=== PATIENT | female | born 1970 | race Caucasian/White ===

== ENCOUNTER 2017-09-09 00:23 | Observation (INO) | payer OTHER ==
[2017-09-09 01:52] LABS: Absolute Lymphocytes (CBC) 2.7 K/uL (0.7-4.9); Absolute Monocytes 0.8 K/uL (0.1-1.3); Absolute Neutrophil 8.4 K/uL (1.8-8.0); Basophils % 0.7 % (0-1.3); Eosinophils % 1.6 % (0-4.4); Hematocrit 40.4 % (36.0-45.0); Lymphocytes % 21.8 % (15.3-44.8); MCH 28.9 pg (27.0-35.0); MCV 87.3 fL (80-100); MPV 9.4 fL (7.6-11.3); Monocytes % 6.6 % (3.3-12.3); RBC Red Blood Cell Count 4.62 M/uL (3.86-4.86)
[2017-09-09] MEDS ORDERED: NITROGLYCERIN 0.4 MG/TAB SL ONE (01:53)
[2017-09-09] MEDS ORDERED: ONDANSETRON 4 MG/2 ML VIAL ONE (01:54)
[2017-09-09] MEDS ORDERED: MEPERIDINE HCL 50 MG/ML AMP ONE (01:54)
[2017-09-09] MEDS ORDERED: ASPIRIN 81 MG CHEWABLE TABLET ONE (01:54)
[2017-09-09 01:55] LABS: Protime INR 0.93
[2017-09-09 05:01] LABS: Bilirubin Direct 0.1 mg/dL (0-0.2); Bilirubin Total 0.4 mg/dL (0.3-1.2); Magnesium 1.8 mg/dL (1.8-2.5); Potassium 3.1 mEq/L (3.6-5.0); Protein, Total 7.2 g/dL (6.0-8.3)
--- NOTE | 2017-09-09 05:10 | EKG ---
Test Date: 2017-09-09 Test Time: 01:01:37 Systems Consultant: ZANE MEASUREMENT RESULTS: Intervals: Rate: 70 KS: 140 QRSD: 70 QT: 430 QTc: 464 [place]: P: 45 KS: 140 QRS: 70 T: 63 INTERPRETIVE STATEMENTS: Normal sinus rhythm Low voltage QRS Borderline ECG Compared to ECG 04/14/2016 06:43:27 Low QRS voltage now present Sinus bradycardia no longer present Electronically Signed On 09-09-17 05:10:15 CDT by Robinson Crenshaw
--- NOTE | 2017-09-09 05:10 | ER ---
Nurse's Notes [facility] Name: Phyllis Escalera Age: 47 yrs Sex: Female : 1970 Arrival Date: 09/09/2017 Time: 00:33 Bed 7 Private MD: Diagnosis: acute chest pain;acute shortness of breath Presentation: 09/09 00:47 Presenting complaint: Patient states: "I had chest pain that started few hours ago and ao is getting worst." Patient describes pain as stabbing in 9/10 pain scale. Patient had been vomiting. Transition of care: patient was not received from another setting of care. Onset of symptoms was September 08, 2017 at 21:00. Care prior to arrival: None. 00:47 Method Of Arrival: Wheelchair ao 00:47 Acuity: SILVERIO 3 ao Triage Assessment: 00:55 General: Appears in no apparent distress. Behavior is agitated, anxious. Pain: ao Complains of pain in chest. Cardiovascular: Capillary refill < 3 seconds Patient's skin is warm and dry. 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 - Social history:: Smoking status: Patient uses tobacco products, smokes one pack cigarettes per day. Patient/guardian denies using alcohol, street drugs. - Family history:: not pertinent. - Hospitalizations: : No recent hospitalization is reported. Screenin:14 Abuse screen: Denies threats or abuse. Denies injuries from another. Nutritional bs1 screening: No deficits noted. Tuberculosis screening: No symptoms or risk factors identified. Fall Risk None identified. Assessment: 01:11 General: Appears uncomfortable, Behavior is anxious, crying. Pain: Complains of pain in bs1 mid chest Pain radiates to left shoulder down left arm Pain currently is 10 out of 10 on a pain scale. Quality of pain is described as pressure, stabbing, Pain began 30 min ago. Is continuous. Neuro: Level of Consciousness is awake, alert, obeys commands, Oriented to person, place, time, situation, Appropriate for age Puller Over are equal bilaterally Moves all extremities. Gait is steady. Cardiovascular: Reports chest pain, lightheadedness, shortness of breath, vomiting, Denies palpitations, Heart tones S1 S2 present Capillary refill < 3 seconds Patient's skin is warm and dry. Rhythm is regular. Respiratory: Reports shortness of breath at rest on exertion Airway is patent Trachea midline Respiratory effort is even, unlabored, Respiratory pattern is regular, symmetrical, Breath sounds are clear bilaterally. GI: Abdomen is round Bowel sounds present X 4 quads. Abd is non tender X 4 quads Reports nausea, vomiting. : No deficits noted. No signs and/or symptoms were reported regarding the genitourinary system. EENT: No deficits noted. No signs and/or symptoms were reported regarding the EENT system. Derm: Skin is intact, Skin is pink, warm \\T\\ dry. 01:15 General: 2l NC applied. bs1 01:51 Reassessment: No changes from previously documented assessment. Patient and/or family bs1 updated on plan of care and expected duration. Pain level reassessed. Patient is alert, oriented x 3, equal unlabored respirations, skin warm/dry/pink. 01:58 General: See paper charting.. bs1 02:58 Reassessment: No changes from previously documented assessment. Patient and/or family bs1 updated on plan of care and expected duration. Pain level reassessed. Patient is alert, oriented x 3, equal unlabored respirations, skin warm/dry/pink. 03:58 Reassessment: Patient appears in no apparent distress at this time. Patient and/or bs1 family updated on plan of care and expected duration. Pain level reassessed. Patient is alert, oriented x 3, equal unlabored respirations, skin warm/dry/pink. Patient states feeling better. 04:58 Reassessment: Patient appears in no apparent distress at this time. No changes from bs1 previously documented assessment. Patient and/or family updated on plan of care and expected duration. Pain level reassessed. Patient is alert, oriented x 3, equal unlabored respirations, skin warm/dry/pink. 05:58 Reassessment: Patient appears in no apparent distress at this time. No changes from bs1 previously documented assessment. Patient and/or family updated on plan of care and expected duration. Pain level reassessed. Patient is alert, oriented x 3, equal unlabored respirations, skin warm/dry/pink. 06:26 Reassessment: Patient appears in no apparent distress at this time. Patient is alert, bs1 oriented x 3, equal unlabored respirations, skin warm/dry/pink. Denies chest pain at this time. Vital Signs: 00:52 BP 127 / 99; Pulse 75; Resp 22; Temp 98.1; Pulse Ox 100% ; Weight 90.72 kg; Height 5 ao ft. 4 in. (162.56 cm); Pain 9/10; 01:49 BP 123 / 90; Pulse 64; Resp 18; Pulse Ox 100% on 2 lpm NC; Pain 9/10; bs1 02:49 BP 138 / 95; Pulse 60; Resp 14 S; Pulse Ox 100% on 2 lpm NC; Pain 0/10; bs1 03:49 BP 132 / 85; Pulse 70; Resp 15 S; Pulse Ox 100% on 2 lpm NC; Pain 0/10; bs1 04:49 BP 114 / 83; Pulse 56; Resp 14; Pulse Ox 100% on 2 lpm NC; Pain 0/10; bs1 06:01 BP 121 / 85; Pulse 59; Resp 15; Pulse Ox 97% on 2 lpm NC; mt 06:25 BP 114 / 82; Pulse 70; Resp 16; Pulse Ox 100% on 2 lpm NC; Pain 0/10; bs1 07:30 BP 116 / 88; Pulse 57; Resp 18; Pulse Ox 99% ; sv 00:52 Body Mass Index 34.33 (90.72 kg, 162.56 cm) ao ED Course: 00:33 Patient arrived in ED. al2 00:48 Triage completed. ao 00:48 Arm band placed on right wrist. Patient placed on a stretcher, on pulse oximetry, ao Patient notified of wait time. 01:08 Inserted saline lock: 20 gauge in left antecubital area, using aseptic technique. bs1 Patient maintains SpO2 saturation greater than 95% on room air. 01:08 Initial lab(s) drawn, by me, sent to lab. bs1 01:11 Linh Guajardo, ANNEL is Primary Nurse. bs1 01:14 Patient has correct armband on for positive identification. Bed in low position. Call bs1 light in reach. Side rails up X 1. surveillance monitor on. Pulse ox on. NIBP on. 01:17 Abhinav Gómez MD is Attending Physician. wa 01:38 X-ray completed. Portable x-ray completed in exam room. Patient tolerated procedure jw2 well. 01:43 Parris Whipple MD is Hospitalizing Provider. wa 01:57 No provider procedures requiring assistance completed. bs1 07:02 Report given to ANNEL Cho. bs1 07:08 Patient admitted, IV remains in place. intact. bs1 Administered Medications: 01:47 Drug: Zofran 4 mg Route: IVP; Site: left antecubital; bs1 01:48 Follow up: Response: No adverse reaction bs1 01:47 Drug: Demerol 50 mg Route: IVP; Site: left antecubital; bs1 01:48 Follow up: Response: No adverse reaction bs1 01:48 Drug: Nitroglycerin 0.4 mg Route: Sublingual; bs1 01:49 Follow up: Response: No adverse reaction bs1 01:48 Drug: Aspirin 324 mg Route: PO; bs1 01:49 Follow up: Response: No adverse reaction bs1 Outcome: 01:44 Decision to Hospitalize by Provider. wa 07:08 Condition: stable bs1 07:08 Instructed on the need for admit. 07:49 Patient left the ED. Signatures: Tammie Good RN RN sv Smirch, Shelby, RN RN Darryl Nielson RN RN ao Wailes, Jenni 2 Mitzi Corona nj Abhinav Gómez MD MD hi Linh Guajardo RN RN bs1 Sarah Guaman
--- NOTE | 2017-09-09 05:10 | EDPHYS ---
Physician Documentation [facility] Name: Phyllis Escalera Age: 47 yrs Sex: Female : 1970 Arrival Date: 09/09/2017 Time: 00:33 Bed 7 Private MD: ED Physician Abhinav Gómez HPI: 09/09 05:11 This 47 yrs old Female presents to ER via Wheelchair with complaints of Chest wa Pain. 05:11 The patient or guardian reports chest pain that is located primarily in the substernal wa area. Onset: just prior to arrival. The pain does not radiate. The pain radiates to the left arm. Associated signs and symptoms: Pertinent positives: shortness of breath. The chest pain is described as a heaviness, sharp. Duration: The patient or guardian reports a single episode, that is still ongoing, and worsening. Modifying factors: The symptoms are alleviated by nothing. the symptoms are aggravated by nothing. Severity of pain: At its worst the pain was severe just prior to arrival. The patient has experienced a previous episode, approximately 2 months ago. The patient has not recently seen a physician. 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 - Social history:: Smoking status: Patient uses tobacco products, smokes one pack cigarettes per day. Patient/guardian denies using alcohol, street drugs. - Family history:: not pertinent. - Hospitalizations: : No recent hospitalization is reported. ROS: 05:12 Constitutional: Negative for fever, chills, and weight loss, Eyes: Negative for injury, wa pain, redness, and discharge, ENT: Negative for injury, pain, and discharge, Neck: Negative for injury, pain, and swelling, Abdomen/GI: Negative for abdominal pain, nausea, vomiting, diarrhea, and constipation, Back: Negative for injury and pain, : Negative for injury, bleeding, discharge, and swelling, MS/Extremity: Negative for injury and deformity, Skin: Negative for injury, rash, and discoloration, Neuro: Negative for headache, weakness, numbness, tingling, and seizure, Psych: Negative for depression, anxiety, suicide ideation, homicidal ideation, and hallucinations. 05:12 Cardiovascular: Positive for chest pain, Negative for edema, orthopnea, palpitations. 05:12 Respiratory: Positive for shortness of breath, at rest. Negative for cough, wheezing. 05:12 All other systems are negative. Exam: 05:13 Head/Face: Normocephalic, atraumatic. Eyes: Pupils equal round and reactive to light, wa extra-ocular motions intact. Lids and lashes normal. Conjunctiva and sclera are non-icteric and not injected. Cornea within normal limits. Periorbital areas with no swelling, redness, or edema. ENT: Nares patent. No nasal discharge, no septal abnormalities noted. Tympanic membranes are normal and external auditory canals are clear. Oropharynx with no redness, swelling, or masses, exudates, or evidence of obstruction, uvula midline. Mucous membranes moist. Neck: Trachea midline, no thyromegaly or masses palpated, and no cervical lymphadenopathy. Supple, full range of motion without nuchal rigidity, or vertebral point tenderness. No Meningismus. Abdomen/GI: Soft, non-tender, with normal bowel sounds. No distension or tympany. No guarding or rebound. No evidence of tenderness throughout. Back: No spinal tenderness. No costovertebral tenderness. Full range of motion. Skin: Warm, dry with normal turgor. Normal color with no rashes, no lesions, and no evidence of cellulitis. MS/ Extremity: Pulses equal, no cyanosis. Neurovascular intact. Full, normal range of motion. Neuro: Awake and alert, GCS 15, oriented to person, place, time, and situation. Cranial nerves II-XII grossly intact. Motor strength 5/5 in all extremities. Sensory grossly intact. Cerebellar exam normal. Normal gait. Psych: Awake, alert, with orientation to person, place and time. Behavior, mood, and affect are within normal limits. 05:13 Constitutional: The patient appears alert, in obvious distress, severely distressed, clutching chest 05:13 Chest/axilla: Inspection: normal, Palpation: tenderness, that is moderate, of the mid-sternal area. 05:13 Cardiovascular: Rate: normal, Rhythm: regular, Pulses: no pulse deficits are appreciated, Heart sounds: normal, Edema: is not appreciated, JVD: is not appreciated. 05:13 Respiratory: the patient does not display signs of respiratory distress, Respirations: normal, Breath sounds: are clear throughout, Respiratory rate: nml Vital Signs: 00:52 BP 127 / 99; Pulse 75; Resp 22; Temp 98.1; Pulse Ox 100% ; Weight 90.72 kg; Height 5 ao ft. 4 in. (162.56 cm); Pain 9/10; 01:49 BP 123 / 90; Pulse 64; Resp 18; Pulse Ox 100% on 2 lpm NC; Pain 9/10; bs1 02:49 BP 138 / 95; Pulse 60; Resp 14 S; Pulse Ox 100% on 2 lpm NC; Pain 0/10; bs1 03:49 BP 132 / 85; Pulse 70; Resp 15 S; Pulse Ox 100% on 2 lpm NC; Pain 0/10; bs1 04:49 BP 114 / 83; Pulse 56; Resp 14; Pulse Ox 100% on 2 lpm NC; Pain 0/10; bs1 06:01 BP 121 / 85; Pulse 59; Resp 15; Pulse Ox 97% on 2 lpm NC; mt 06:25 BP 114 / 82; Pulse 70; Resp 16; Pulse Ox 100% on 2 lpm NC; Pain 0/10; bs1 07:30 BP 116 / 88; Pulse 57; Resp 18; Pulse Ox 99% ; sv 00:52 Body Mass Index 34.33 (90.72 kg, 162.56 cm) ao MDM: 01:17 Patient medically screened. wa 05:14 Differential diagnosis: acute myocardial infarction, acute pericarditis, coronary wa artery disease chest wall pain, congestive heart failure esophagitis, pancreatitis, pneumonia, pneumothorax, pulmonary embolus, stable angina, thoracic aortic disection, unstable angina. Data reviewed: vital signs, nurses notes, lab test result(s), EKG, radiologic studies. 05:15 Test interpretation: by ED physician or midlevel provider: EKG: HR 70. low voltage. no wa ST-T changes worrisome for ischemia. 05:18 Test interpretation: by ED physician or midlevel provider: labs noted wnl. CT mn chest/abd/pelvis: no acute process. CXR nml.. 05:18 Response to treatment: the patient's symptoms have markedly improved after treatment. mn Physician consultation: Parris Whipple MD. Admission orders: after a detailed discussion of the patient's condition and case, the admit orders are written by ne. 09/09 01:25 Order name: Basic Metabolic Panel mn 09/09 01:25 Order name: BNP mn 09/09 01:25 Order name: CBC with Diff mn 09/09 01:25 Order name: CPK mn 09/09 01:25 Order name: LFT's mn 09/09 01:25 Order name: Magnesium mn 09/09 01:25 Order name: PT-INR mn 09/09 01:25 Order name: Troponin (emerg Dept Use Only) mn 09/09 05:11 Order name: Basic Metabolic Panel [facility] 09/09 05:11 Order name: Liver (Hepatic) Function [facility] 09/09 05:11 Order name: Creatine Phosphokinase [facility] 09/09 05:11 Order name: Magnesium [facility] 09/09 05:11 Order name: BNP B-Type Natriuretic Peptide [facility] 09/09 05:11 Order name: CBC with Automated Diff [facility] 09/09 01:25 Order name: XRAY Chest (1 view) mn 09/09 01:25 Order name: EKG; Complete Time: mn 09/09 01:25 Order name: Cardiac monitoring; Complete Time: mn 09/09 01:25 Order name: EKG - Nurse/Tech; Complete Time: mn 09/09 01:25 Order name: IV Saline Lock; Complete Time: mn 09/09 01:25 Order name: Labs collected and sent; Complete Time: mn 09/09 01:25 Order name: O2 Per Protocol; Complete Time: mn 09/09 01:25 Order name: O2 Sat Monitoring; Complete Time: mn 09/09 01:27 Order name: CT Chest Abdomen W/ Contrast mn 09/09 05:11 Order name: Protime (+INR) [facility] 09/09 05:11 Order name: Troponin (Emerg Dept Use Only) [facility] 09/09 06:54 Order name: Urine Dipstick--Ancillary (enter results) em1 09/09 01:25 Order name: Urine Dipstick-Ancillary (obtain specimen); Complete Time: 06:52 mn Administered Medications: 01:47 Drug: Zofran 4 mg Route: IVP; Site: left antecubital; bs1 01:48 Follow up: Response: No adverse reaction bs1 01:47 Drug: Demerol 50 mg Route: IVP; Site: left antecubital; bs1 01:48 Follow up: Response: No adverse reaction bs1 01:48 Drug: Nitroglycerin 0.4 mg Route: Sublingual; bs1 01:49 Follow up: Response: No adverse reaction bs1 01:48 Drug: Aspirin 324 mg Route: PO; bs1 01:49 Follow up: Response: No adverse reaction bs1 Disposition: 09/09/17 01:44 Hospitalization ordered by Parris Whipple for Observation. Preliminary diagnosis are acute chest pain, acute shortness of breath. - Bed requested for Telemetry/MedSurg (observation). - Status is Observation. ss - Condition is Stable. - Problem is new. - Symptoms have improved. UTI on Admission? No Signatures: Dispatcher [employer] Xochitl Giron RN RN kl Chretien, Felicia, RN RN fc Smirch, Shelby, RN RN ss Ortiz, Alex, RN RN ao Appiah, William, MD MD wa Salazar, Brittany, RN RN bs1
[2017-09-09 05:43] VITALS: BMI 34.3
[2017-09-09] MEDS ORDERED: ACETAMINOPHEN 500 MG TAB PO PRN (07:07)
[2017-09-09 08:09] LABS: Urine Blood 1+ (NEG); Urine Glucose NEGATIVE (NEG); Urine Protein NEGATIVE (NEG)
--- NOTE | 2017-09-09 08:40 | RAD REPORT ---
EXAM DESCRIPTION: CT - Angio Aorta For Dissection - 09/09/2017 6:33 am CLINICAL HISTORY: Stabbing chest pain radiating to the back, vomiting, hypertension, prior hysterec santiago A preliminary written report was provided at the time of the study, and the report was reviewed prio r to final dictation. COMPARISON: Chest exam same date TECHNIQUE: Dynamically enhanced 3 mm thick images of the chest, abdomen, and upper pelvis were obtai chirag during administration of approximately 150mL Isovue 370 IV contrast. Sagittal and coronal reconst ruction images were generated and reviewed. Exam utilizes a protocol to evaluate entire course of the aorta. All CT scans are performed using dose optimization technique as appropriate and may include automated exposure control or mA/KV adjustment according to patient size. FINDINGS: Aorta is normal in diameter with no dissection or other acute aortic findings. Reconstruct ion images show no significant findings. Pulmonary arteries are normal as well. No cardiomegaly, pericardial thickening or pericardial effusio n. No mass or infiltrate in the lung parenchyma. No pleural thickening, pleural effusion or pneumothorax . No abnormal mediastinal or hilar mass or lymphadenopathy seen. No chest wall mass or abnormal axillar y lymphadenopathy. Celiac, SMA and renal arteries show no suspicious findings. Solid abdominal viscera and bowel show no significant findings. No mass or abnormal lymphadenopathy. No free air, free fluid or inflammatory stranding. No urinary bladder abnormality. Uterus and right ovary show no suspicious findings. Left ovary contains a 3 centimeter cyst with no suspicious characteristics. IMPRESSION: Negative CT scan of the aorta. No other significant findings on chest, abdomen and upper pelvis examination.
--- NOTE | 2017-09-09 08:43 | RAD REPORT ---
EXAM DESCRIPTION: RAD - Chest Single View - 09/09/2017 1:40 am CLINICAL HISTORY: Chest pain progressing over time COMPARISON: March 2016 TECHNIQUE: AP portable chest image was obtained 0136 hours . FINDINGS: Lungs are clear. Heart and vasculature are normal. No measurable pleural effusion and no p neumothorax. No gross bony abnormality seen. No acute aortic findings suspected. IMPRESSION: No acute cardiopulmonary process. No significant change from comparison.
[2017-09-09] MEDS: ENOXAPARIN 40 MG/0.4 ML SQ SCH (09:36)
[2017-09-09] MEDS: hydroCHLOROthiazide 12.5 MG CAP PO SCH (09:36)
[2017-09-09] MEDS: ASPIRIN 81 MG CHEWABLE TABLET PO SCH (09:36)
[2017-09-09] MEDS: PANTOPRAZOLE 40MG TABLET PO SCH (09:37)
[2017-09-09] MEDS: VALSARTAN 160 MG TAB PO SCH (09:37)
[2017-09-09] MEDS ORDERED: PANTOPRAZOLE 40MG TABLET PO SCH (10:00)
[2017-09-09] MEDS ORDERED: MAGNESIUM SULFATE 1 gm IVPB 1 GM/100 ML BAG IV ONE (11:00)
[2017-09-09] MEDS ORDERED: POTASSIUM CL SA 10 MEQ TAB PO ONE (11:00)
[2017-09-09] MEDS ORDERED: NA CHLORIDE 0.9% 250 ML ONE (11:42)
--- NOTE | 2017-09-09 14:01 | CON ---
History Of Present Illness: Ms. Escalera had atypical chest pain, came to the ER. Since being here, cardiac enzymes are normal and her EKG is normal. Ms. Escalera had chest pain in March 2016. We did a cardiac catheterization. Her coronary arteries are completely normal. Her echocardiogram was normal. Since then, she continues to smoke. She has good control of her blood pressure. She does n ot have diabetes. Allergies: SHE IS ALLERGIC TO DILTIAZEM. NO OTHER ALLERGIES. Physical Examination: General: She is feet 4 inches, 200 pounds. HEENT: Normal. Lungs: Clear. Cardiac Exam: Normal. Abdomen: Soft. Extremities: Normal. Diagnostic Data: EKG, normal. Cardiac enzymes normal. Impression: This is not an acute coronary syndrome. We will do a stress test tomorrow. If that is normal, she could be discharged. She should probably have studies to see if she has gallstones. I a m quite suspicious that what she had yesterday was actually a gallbladder attack. ROSALIO/RADHA Voice ID: [id number] Report ID: [id number]
--- NOTE | 2017-09-09 15:01 | P.HP ---
Certification for Inpatient Patient admitted to: Observation With expected LOS: <2 Midnights Patient will require the following post-hospital care: None Practitioner: I am a practitioner with admitting privileges, knowledge of patient current condition, hospital course, and medical plan of care. Services: Services provided to patient in accordance with Admission requirements found in Title 42 Section 412.3 of the Code of Federal Regulations Patient History Date of Service: 09/09/17 Primary Care Provider: NONE Reason for admission: Chest Pain History of Present Illness: This is a 47-year-old female with significant past medical history of hypo pressure presented to the ED complaining of having some chest pain that started about this morning. Patient stated that she had heaviness in her chest and then noticed that the pain was going down her chest under her breast area. Patient also noted that she started having some numbness and tingling on the left-hand side which was going up to her neck and she started having nausea. Patient stated that she had initially fever and chills and thus she decided to come to the ER to get a further checked out. Patient has not had any symptoms like this has happened to her in the past and this is the 1st time she has had chest pain. Allergies Calcium Channel Blocking Agent Dilt Allergy (Verified 04/14/16 04:54) Anaphylaxis CALCIUM CHANNEL BLOCKING Allergy (Uncoded 09/09/17 07:52) Unknown Home Medications: Esomeprazole Magnesium 40 mg PO DAILY 09/09/17 Hydrochlorothiazide [Hydrochlorothiazide*] 12.5 mg PO DAILY 09/09/17 Olmesartan Medoxomil 40 mg PO DAILY 09/09/17 - Past Medical/Surgical History Has patient received pneumonia vaccine in the past: No Diabetic: No -: HTN -: tubal ligation -: - Family History Mother -: Hypertension - Social History Smoking Status: Current every day smoker Alcohol use: Yes CD- Drugs: No Caffeine use: Yes Place of Residence: Home Review of Systems General: As per HPI Physical Examination - Vital Signs Temperature: 98.6 F Blood Pressure: 98/54 Pulse: 64 Respirations: 16 Pulse Ox (%): 95 - Physical Exam General: Alert, In no apparent distress, Oriented x3 HEENT: Atraumatic, PERRLA, Mucous membr. moist/pink, EOMI, Sclerae nonicteric Neck: Supple, 2+ carotid pulse no bruit, No LAD, Without JVD or thyroid abnormality Respiratory: Clear to auscultation bilaterally, Normal air movement Cardiovascular: Regular rate/rhythm, Normal S1 S2 Gastrointestinal: Normal bowel sounds, No tenderness Musculoskeletal: No tenderness Integumentary: No rashes Neurological: Normal gait, Normal speech, Normal strength at 5/5 x4 extr, Normal tone, Normal affect Lymphatics: No axilla or inguinal lymphadenopathy - Studies Laboratory Data (last 24 hrs) 09/09/17 00:30: PT 11.0, INR 0.93 09/09/17 00:30: WBC 12.2 H, Hgb 13.4, Hct 40.4, Plt Count 280 09/09/17 00:30: B-Natriuretic Peptide 19 09/09/17 00:30: Sodium 136, Potassium 3.1 L, BUN 9, Creatinine 0.99, Glucose 108 , Magnesium 1.8, Total Bilirubin 0.4, AST 20, ALT 27, Alkaline Phosphatase 82 Assessment and Plan - Problems (Diagnosis) (1) Chest pain Onset Date: 04/14/16 Current Visit: No Status: Acute Plan: Atypical Chest Pain with Negative troponin and EKG -Cardiology consulted -Stress in AM -ECHO pending -ACS guidelines. Qualifiers: Chest pain type: precordial pain Qualified Code(s): R07.2 - Precordial pain (2) HTN (hypertension) Current Visit: Yes Status: Chronic Qualifiers: Hypertension type: essential hypertension Qualified Code(s): I10 - Essential (primary) hypertension Discharge Plan: Home Plan to discharge in: 24 Hours - Advance Directives Does patient have a Living Will: No Does patient have a Durable POA for Healthcare: No - Code Status/Comfort Care Code Status Assessed: Yes Critical Care: No
--- NOTE | 2017-09-09 20:44 | RAD REPORT ---
EXAM DESCRIPTION: US - Abdomen Exam Complete - 09/09/2017 8:33 pm CLINICAL HISTORY: Abdominal pain, cholecystitis type symptoms COMPARISON: CT study September 09 FINDINGS: Gallbladder is partially contracted. Wall thickness is accentuated. No pericholecystic flu id seen. Gallbladder wall thickening may be due to chronic gallbladder disease, an acute wall thicken ing or artifact from incomplete distention. A 4 millimeter gallstone is identified it here into the w all. There are additional nonshadowing echogenic foci smaller in size likely representing polyps. No measurable quantity of sludge. Common bile duct is normal with no common duct stone identified. Liver shows a coarsened, increased echogenicity typical for fatty infiltration. No focal liver lesions see n. No splenic abnormality. The pancreas is too obscured for assessment. No pancreatic abnormality se en on the same day CT study. No hydronephrosis or suspicious mass in either kidney. Aorta is normal is size. No ascites or bulky lymphadenopathy. IMPRESSION: Single small gallstone is identified a tear to the wall. Additional small echogenic foci are believed to be polyps. Gallbladder wall is not fully distended. This accentuates wall thickness. This pattern can be seen in a nonfasting patient as well as with acute and chronic cholecystitis. There is no pericholecystic fl uid. No biliary tree dilatation. Fatty infiltration of the liver.
[2017-09-09] MEDS ORDERED: ATORVASTATIN 40 MG TAB PO SCH (21:00)
[2017-09-10 00:18] VITALS: O2SAT 98
[2017-09-10 05:59] LABS: Potassium 3.3 mEq/L (3.6-5.0)
[2017-09-10] MEDS: KCL 20 MEQ/100 mL IVPB 20 MEQ/100 ML BAG IV SCH ×2 (07:02→09:00)
[2017-09-10] MEDS ORDERED: NA CHLORIDE 0.9% 250 ML ONE (07:13)
[2017-09-10] MEDS ORDERED: HOME MED 1 EA UNK (Olmesartan Medoxomil [Olmesartan Medoxomil] 40 MG) PO SCH (09:00)
[2017-09-10] MEDS ORDERED: HOME MED 1 EA UNK (Esomeprazole Magnesium [Esomeprazole Magnesium] 40 MG) PO SCH (09:00)
[2017-09-10] MEDS: PANTOPRAZOLE 40MG TABLET PO SCH (12:49)
[2017-09-10] MEDS: ASPIRIN 81 MG CHEWABLE TABLET PO SCH (12:49)
[2017-09-10] MEDS: VALSARTAN 160 MG TAB PO SCH (12:51)
[2017-09-10] MEDS: hydroCHLOROthiazide 12.5 MG CAP PO SCH (12:51)
[2017-09-10] MEDS: ENOXAPARIN 40 MG/0.4 ML SQ SCH (12:53)
--- NOTE | 2017-09-10 16:59 | TREADMILL ---
70% H.R.: 123 85% H.R.: 149 90% H.R.: 158 100% H.R.: 175 DX: CHEST PAIN Date of Study: 09/10/2017 Ht: 5' 4 " Wt: 200 lb 0 oz Consulting Physician: VALERI MEDICATIONS: TYLENOL, ASPIRIN, LOVENOX, LIPITOR, ZOFRAN, DEMEROL, NITROSTAT HISTORY: 47 YEAR OLD FEMALE WITH COMPIANTS OF CHEST PAIN. HISTORY OF HYPERTENSION, GERD AND SMOKES HALF A PACK OF CIGARETTES PER DAY. PHYSICIAL EXAMINATION: RESTING B.P.: 130/94 RESTING H.R.: 78 RESTING EKG: NORMAL PROTOCOL: JOSSEYLN ROUTINE EXERCISE TIME: 7:05 MAXIMUM HEART RATE: 162 % OF PREDICTED B.P. AT PEAK STRESS: 144/90 H.R. AT 1 MINUTE POST EXERCISE: 148 IMPRESSION: ROUTINE JOSSELYN STOPPED DUE TO FATIGUE AND TARGET HEART RATE REACHED. NO CHEST PAIN. NO VENTRICULAR TACHYCARDIA. NO SUPRAVENTRICULAR TACHYCARDIA. NO ISCHEMIA WITH STESS. NORMAL STRESS TEST.
[2017-09-10 17:23] VITALS: BP 117/66; TEMP 97.7
--- NOTE | 2017-09-11 02:39 | DS ---
Date of Discharge: 09/10/2017 Consultants: Robinson Crenshaw M.D. with Cardiology. Procedures: On 09/10/2017, stress test. Admitting Diagnoses: 1.Chest pain. 2.Essential hypertension. 3.Obesity, BMI of 34.3. Discharge Diagnoses: 1.Chest pain, acute coronary syndrome ruled out. 2.Essential hypertension, stable. 3.Obesity, BMI of 34.3. Hospital Course: The patient is a 47-year-old female with past medical history of hypertension, who came in with chest pain. The patient was started on chest pain guidelines and remote cardiac telemet ry. Cardiac enzymes were repeated which were negative. The patient did have some mild hypokalemia, which was corrected. The patient otherwise did well. Her vital signs remained stable. Her chest pa in resolved. She was seen by Cardiology who recommended stress test. Stress test was completed. Th e patient otherwise did well. She was then cleared for discharge by consultants. The patient was di scharged home in a stable condition. Activity: As tolerated. Medications: As per medication reconciliation list. Followup: Follow up with conditioning room worker, Dr. Crenshaw in 2-4 weeks. Return to ER for worsening conditio n. Diet: Heart healthy. Physical Examination: General: Awake, alert, oriented, in no acute distress. CV: S1, S2. No murmurs. Respiratory: Clear to auscultation bilaterally. No wheezing. Abdomen: Soft, nontender, nondistended. Positive bowel sounds. Extremities: No clubbing, cyanosis, or edema. Neurologic: Nonfocal. SA/MODL Voice ID: [id number] Report ID: [id number]
== END 2017-09-10 18:04 | disposition home or self-care (01) ==
LOC: ER 00:23 → 2ND 01:44
PROVIDERS: ADMIT Internal Medicine; ATTEND Family Medicine
DX: R07.9 Chest pain, unspecified (principal); I10 Essential (primary) hypertension; E66.9 Obesity, unspecified; Z68.34 Body mass index [BMI] 34.0-34.9, adult; E87.6 Hypokalemia; F17.210 Nicotine dependence, cigarettes, uncomplicated
CPT/HCPCS: 36415; 71045; 71275; 74175; 76700; 80048; 80076; 81003; 82550; 83735; 83880; 84100; 84132; 84484; 85025; 85610; 93005; 93017; 96374; 96375; 99285; G0378; J1650; J2175; J2405; J3475; Q9967

== ENCOUNTER 2017-09-13 13:29 | Emergency (ER) | payer OTHER ==
[2017-09-13] MEDS ORDERED: MEPERIDINE HCL 25 MG/0.5 ML ONE ×2 (14:13→15:00)
[2017-09-13] MEDS ORDERED: PROMETHAZINE 25 MG/ML VIAL ONE (14:13)
[2017-09-13 14:15] LABS: Absolute Lymphocytes (CBC) 2.1 K/uL (0.7-4.9); Absolute Monocytes 0.6 K/uL (0.1-1.3); Absolute Neutrophil 9.5 K/uL (1.8-8.0); Basophils % 0.7 % (0-1.3); Eosinophils % 0.5 % (0-4.4); Hematocrit 40.8 % (36.0-45.0); Lymphocytes % 16.9 % (15.3-44.8); MPV 9.8 fL (7.6-11.3); Monocytes % 5.3 % (3.3-12.3); Protime INR 1.05; RBC Red Blood Cell Count 4.69 M/uL (3.86-4.86)
[2017-09-13 14:21] LABS: Potassium 3.2 mEq/L (3.6-5.0)
[2017-09-13 14:27] LABS: Bilirubin Direct 0.1 mg/dL (0-0.2); Bilirubin Total 0.6 mg/dL (0.3-1.2); Magnesium 1.7 mg/dL (1.8-2.5); Protein, Total 7.6 g/dL (6.0-8.3)
--- NOTE | 2017-09-13 14:51 | RAD REPORT ---
EXAM DESCRIPTION: RAD - Chest Single View - 09/13/2017 2:34 pm CLINICAL HISTORY: Chest pain, epigastric pain COMPARISON: September 09 TECHNIQUE: AP portable chest image was obtained 1421 hours . FINDINGS: Lungs are clear. Heart and vasculature are normal. No measurable pleural effusion and no p neumothorax. No gross bony abnormality seen. No acute aortic findings suspected. IMPRESSION: No acute cardiopulmonary process. No significant interval change.
--- NOTE | 2017-09-13 15:38 | RAD REPORT ---
EXAM DESCRIPTION: US - Abdomen Exam Limited - 09/13/2017 3:24 pm CLINICAL HISTORY: Abdominal pain COMPARISON: Ultrasound September 09 FINDINGS: Gallbladder size is normal. No wall thickening or pericholecystic fluid. Small echogenic f oci air seen adherent to the wall of the gallbladder. These are 4 mm or less in size. This could be p olyps or adherent gallstones. Minimal amount of sludge seen. No common duct stone or biliary tree dilatation identified. IMPRESSION: Small adherent gallstones versus polyps 4 mm or less in size. No mobile gallstones seen. No wall thickening or pericholecystic fluid.
--- NOTE | 2017-09-13 16:27 | EKG ---
Test Date: 2017-09-13 Test Time: 13:37:37 It Integration Architect: ILIANA MEASUREMENT RESULTS: Intervals: Rate: 71 OH: 128 QRSD: 64 QT: 444 QTc: 482 [place]: P: 34 OH: 128 QRS: 65 T: 66 INTERPRETIVE STATEMENTS: Normal sinus rhythm Prolonged QT Abnormal ECG Compared to ECG 09/09/2017 01:01:37 Prolonged QT interval now present Electronically Signed On 09-13-17 16:27:23 CDT by Bernard Swann
[2017-09-13] MEDS ORDERED: LIDOCAINE VISCOUS 2% SOLN 15 ML UDC ONE (16:30)
[2017-09-13] MEDS ORDERED: MAGNE/ALUM HYDROXD 30 ML UCUP ONE (16:30)
[2017-09-13] MEDS ORDERED: MAGNESIUM SULFATE 1 gm IVPB 1 GM/100 ML BAG IV ONE (16:31)
--- NOTE | 2017-09-13 17:01 | EDPHYS ---
Physician Documentation [facility] Name: Phyllis Escalera Age: 47 yrs Sex: Female : 1970 Arrival Date: 09/13/2017 Time: 13:34 Bed 6 Private MD: Iban Eason T ED Physician Pj Deluna HPI: 09/13 14:20 This 47 yrs old Female presents to ER via EMS with complaints of Chest Pain > jr8 32 y/o. Abdominal pain. 14:20 The patient presents with abdominal pain in the epigastric area. Onset: The jr8 symptoms/episode began/occurred acutely, today. The symptoms radiate to right back. Associated signs and symptoms: none. The symptoms are described as sharp. Modifying factors: The symptoms are alleviated by nothing, the symptoms are aggravated by movement. Severity of pain: At its worst the pain was moderate in the emergency department the pain is unchanged. The patient has experienced a previous episode. The patient has been recently seen by a physician:. Patient stated that she was recently admitted and told her had gallstones. Was released and told to f/u for gallstones. While in GI office today had sudden acute onset of epigastric/chest pain with radiation to back. Historical: - Allergies: 13:44 CALCIUM CHANNEL BLOCKING AGENTS-PHENYLALKYLAMINES; sg - Home Meds: 13:44 esomeprazole magnesium 20 mg Oral cpDR 1 cap once daily [Active]; hydrochlorothiazide sg 12.5 mg Oral cap 1 cap once daily [Active]; nitroglycerin 2.5 mg Oral cpER [Active]; olmesartan Oral [Active]; - PMHx: 13:44 Hypertension; sg - PSHx: 13:44 ; Hysterectomy; sg - Immunization history:: Adult Immunizations. - Social history:: Smoking status: Patient/guardian denies using tobacco. ROS: 14:20 Eyes: Negative for injury, pain, redness, and discharge, ENT: Negative for injury, jr8 pain, and discharge, Neck: Negative for injury, pain, and swelling, Cardiovascular: Negative for chest pain, palpitations, and edema, Respiratory: Negative for shortness of breath, cough, wheezing, and pleuritic chest pain, Back: Negative for injury and pain, MS/Extremity: Negative for injury and deformity, Skin: Negative for injury, rash, and discoloration, Neuro: Negative for headache, weakness, numbness, tingling, and seizure. 14:20 Abdomen/GI: Positive for abdominal pain, Negative for nausea, vomiting, and diarrhea, abdominal distension, anorexia, dysphagia, hematemesis, black/tarry stool, rectal pain, rectal bleeding, bowel incontinence, flatulence. Exam: 14:20 Head/Face: Normocephalic, atraumatic. Eyes: Pupils equal round and reactive to light, jr8 extra-ocular motions intact. Lids and lashes normal. Conjunctiva and sclera are non-icteric and not injected. Cornea within normal limits. Periorbital areas with no swelling, redness, or edema. ENT: Nares patent. No nasal discharge, no septal abnormalities noted. Tympanic membranes are normal and external auditory canals are clear. Oropharynx with no redness, swelling, or masses, exudates, or evidence of obstruction, uvula midline. Mucous membranes moist. Neck: Trachea midline, no thyromegaly or masses palpated, and no cervical lymphadenopathy. Supple, full range of motion without nuchal rigidity, or vertebral point tenderness. No Meningismus. Cardiovascular: Regular rate and rhythm with a normal S1 and S2. No gallops, murmurs, or rubs. Normal PMI, no JVD. No pulse deficits. Respiratory: Lungs have equal breath sounds bilaterally, clear to auscultation and percussion. No rales, rhonchi or wheezes noted. No increased work of breathing, no retractions or nasal flaring. Back: No spinal tenderness. No costovertebral tenderness. Full range of motion. Skin: Warm, dry with normal turgor. Normal color with no rashes, no lesions, and no evidence of cellulitis. MS/ Extremity: Pulses equal, no cyanosis. Neurovascular intact. Full, normal range of motion. Neuro: Awake and alert, GCS 15, oriented to person, place, time, and situation. Cranial nerves II-XII grossly intact. Motor strength 5/5 in all extremities. Sensory grossly intact. Cerebellar exam normal. Normal gait. 14:20 Abdomen/GI: Inspection: abdomen appears normal, Bowel sounds: active, all quadrants, Palpation: soft, in all quadrants, moderate abdominal tenderness, in the epigastric area and right upper quadrant, mass, is not appreciated, rebound tenderness, is not appreciated, voluntary guarding, is elicited in the epigastric area and right upper quadrant, no appreciated organomegaly, Indicators: McBurney's point is not tender, Brooks's sign is positive, Rovsing's sign is negative, Obturator sign is negative, Psoas sign is negative. Vital Signs: 13:42 BP 134 / 89; Pulse 72; Resp 22 S; Temp 98.3; Pulse Ox 100% on R/A; Pain 10/10; sg 16:22 BP 138 / 97; Pulse 61; Resp 19; Pulse Ox 98% on R/A; sv MDM: 13:46 Patient medically screened. jr8 16:07 Data reviewed: vital signs, nurses notes, old medical records, No acute intrathoracic jr8 or abdominal findings on recent CT lab test result(s), EKG, radiologic studies, plain films, ultrasound. Data interpreted: Pulse oximetry: on room air is 100 %. Interpretation: normal. Counseling: I had a detailed discussion with the patient and/or guardian regarding: the historical points, exam findings, and any diagnostic results supporting the discharge/admit diagnosis, lab results, radiology results. 16:59 Response to treatment: the patient's symptoms have mildly improved after treatment. ED jr8 course: Stones vs polyps in gallbladder without wall thickening. Patient feeling much better. To f/u with GI again for further care. If she were to worsen to come back for further evaluation . 09/13 13:47 Order name: Basic Metabolic Panel; Complete Time: 14:44 09/13 13:47 Order name: BNP; Complete Time: 14:45 09/13 13:47 Order name: CBC with Diff; Complete Time: 14:56 09/13 13:47 Order name: LFT's; Complete Time: 14:44 09/13 13:47 Order name: Magnesium; Complete Time: 14:44 09/13 13:47 Order name: PT-INR; Complete Time: 14:44 09/13 13:47 Order name: Troponin (emerg Dept Use Only); Complete Time: 14:44 09/13 13:47 Order name: XRAY Chest (1 view); Complete Time: 14:56 09/13 13:47 Order name: Lipase; Complete Time: 14:44 09/13 14:57 Order name: US Abdomen Limited; Complete Time: 15:41 09/13 13:47 Order name: EKG; Complete Time: 13:48 09/13 13:47 Order name: Cardiac monitoring; Complete Time: 14:14 09/13 13:47 Order name: EKG - Nurse/Tech; Complete Time: 14:14 09/13 13:47 Order name: IV Saline Lock; Complete Time: 14:02 09/13 13:47 Order name: Labs collected and sent; Complete Time: 14:02 09/13 13:47 Order name: O2 Per Protocol; Complete Time: 14:02 09/13 13:47 Order name: O2 Sat Monitoring; Complete Time: 14:02 Administered Medications: 14:01 Drug: Phenergan 12.5 mg Route: IVP; Site: left antecubital; sg 14:02 Drug: Demerol 25 mg Route: IVP; Site: left antecubital; sg 14:30 Follow up: Response: No adverse reaction; Pain is decreased sg 14:44 Drug: Demerol 25 mg Route: IVP; Site: left antecubital; sg 15:07 Follow up: Response: No adverse reaction; Pain is unchanged, physician notified sg 16:00 Drug: Magnesium Sulfate 1 grams Route: IVPB; Infused Over: 1 hrs; Site: left sg antecubital; 17:20 Follow up: Response: No adverse reaction; IV Status: Completed infusion sg 16:00 CANCELLED (Physician Discretion): Potassium Chloride 40 mEq PO once 16:20 Drug: GI Cocktail without - (Maalox Suspension 30 ml, Lidocaine Liquid 2 % 15 sg ml) Route: PO; 17:20 Follow up: Response: No adverse reaction; Pain is unchanged, physician notified sg Disposition: 09/13/17 17:00 Discharged to Home. Impression: Epigastric pain, Epigastric abdominal tenderness, Cholelithiasis. - Condition is Stable. - Discharge Instructions: Abdominal Pain, Adult, Cholecystitis, Gastritis, Adult, Cholelithiasis. - Work release form, Medication Reconciliation Form, Thank You Letter, Antibiotic Education, Prescription Opioid Use form. - Follow up: Abhinav Herbert MD; When: 1 - 2 days; Reason: Recheck today's complaints, Continuance of care, Re-evaluation by your physician. - Problem is new. - Symptoms have improved. Addendum: 09/15/2017 06:18 Co-signature as Attending Physician, Pj Deluna MD. g s Signatures: Dispatcher [employer] EDLawrence Patton, RN RN sg Shan Lipscomb PA PA jr8 Pj Deluna MD MD Corrections: (The following items were deleted from the chart) 09/13 16:00 15:59 Potassium Chloride 40 mEq PO once ordered. jr8 jr8 17:00 16:07 Data reviewed: vital signs, nurses notes, old medical records, lab test jr8 result(s), EKG, radiologic studies, plain films, ultrasound, jr8
--- NOTE | 2017-09-13 17:01 | ER ---
Nurse's Notes [facility] Name: Phyllis Escalera Age: 47 yrs Sex: Female : 1970 Arrival Date: 09/13/2017 Time: 13:34 Bed 6 Private MD: Iban Eason T Diagnosis: Epigastric pain;Epigastric abdominal tenderness;Cholelithiasis Presentation: 09/13 13:39 Presenting complaint: EMS states: Epigastric Pain and nausea that started at 0945 this sg morning, pt was being seen at a GI appointment for gallbladder pain, the appointment, EMS was contacted dt the pain that is radiating to the back. Transition of care: patient was not received from another setting of care. Onset of symptoms was September 13, 2017. Care prior to arrival: Medication(s) given: ASA, 81 mg, x 4. 13:39 Method Of Arrival: EMS: [facility] sg 13:39 Acuity: SILVERIO 3 sg Historical: - Allergies: 13:44 CALCIUM CHANNEL BLOCKING AGENTS-PHENYLALKYLAMINES; sg - Home Meds: 13:44 esomeprazole magnesium 20 mg Oral cpDR 1 cap once daily [Active]; hydrochlorothiazide sg 12.5 mg Oral cap 1 cap once daily [Active]; nitroglycerin 2.5 mg Oral cpER [Active]; olmesartan Oral [Active]; - PMHx: 13:44 Hypertension; sg - PSHx: 13:44 ; Hysterectomy; sg - Immunization history:: Adult Immunizations. - Social history:: Smoking status: Patient/guardian denies using tobacco. Screenin:40 Abuse screen: Denies threats or abuse. Denies injuries from another. Nutritional sg screening: No deficits noted. Tuberculosis screening: No symptoms or risk factors identified. Never had TB. Fall Risk None identified. Assessment: 13:40 General: Appears in no apparent distress. comfortable, well groomed, well developed, sg well nourished, Behavior is calm, cooperative, appropriate for age. Pain: Complains of pain in left subscapular area and epigastric area Pain radiates to left subscapular area. Neuro: No deficits noted. Cardiovascular: Heart tones S1 S2 present Capillary refill is brisk in bilateral fingers Chest pain is denied. Respiratory: Airway is patent Respiratory effort is even, unlabored, Respiratory pattern is regular, symmetrical. GI: Abdomen is round non-distended, Bowel sounds present X 4 quads. Abd is soft X 4 quads Abdomen is tender to palpation in epigastric area. : No signs and/or symptoms were reported regarding the genitourinary system. EENT: No signs and/or symptoms were reported regarding the EENT system. Derm: Skin is pink, warm \\T\\ dry. Musculoskeletal: No signs and/or symptoms reported regarding the musculoskeletal system. 14:45 Reassessment: Patient appears in no apparent distress at this time. pt moaning, states sg " the pain is coming back, i think the medication has worn off." pt describes pain to be back at a 10/10, epigastric that is described as sharp stabbing with intermittent cramping, pt medicated see EMAR. 15:40 Reassessment: Patient appears in no apparent distress at this time. Patient and/or sg family updated on plan of care and expected duration. Pain level reassessed. Patient is alert, oriented x 3, equal unlabored respirations, skin warm/dry/pink. awaiting results at this time, will continue to monitor Patient states symptoms have not improved. 16:40 Reassessment: Patient appears in no apparent distress at this time. Patient and/or sg family updated on plan of care and expected duration. Pain level reassessed. Patient is alert, oriented x 3, equal unlabored respirations, skin warm/dry/pink. Patient states symptoms have not improved. 17:25 Reassessment: Patient appears in no apparent distress at this time. Patient and/or sg family updated on plan of care and expected duration. Pain level reassessed. Patient is alert, oriented x 3, equal unlabored respirations, skin warm/dry/pink. pt laying supine in bed HOB elevated, srx2, bed in low and locked position call light within reach, eyes closed, resp even and unlabored, awakens easily to verbal stimuli, pt awaiting IVPB Magnesium to infuse prior to dc to home. Vital Signs: 13:42 BP 134 / 89; Pulse 72; Resp 22 S; Temp 98.3; Pulse Ox 100% on R/A; Pain 10/10; sg 16:22 BP 138 / 97; Pulse 61; Resp 19; Pulse Ox 98% on R/A; sv ED Course: 13:34 Patient arrived in ED. sg 13:39 Iban Eason MD is Private Physician. sg 13:40 Patient has correct armband on for positive identification. Bed in low position. Call sg light in reach. Side rails up X2. Pulse ox on. NIBP on. 13:42 Triage completed. sg 13:46 Shan Lipscomb PA is PHCP. jr8 13:46 Pj Deluna MD is Attending Physician. jr8 13:47 Inserted saline lock: 20 gauge in left antecubital area, using aseptic technique. Blood bm6 collected. 13:48 EKG done, by instrument and electrical technician. reviewed by Pj Deluna MD. tc 13:59 Lawrence Bishop, RN is Primary Nurse. sg 14:31 XRAY Chest (1 view) In Process Unspecified. EDMS 15:03 Patient taken to ultrasound. aa4 15:23 Patient moved back from ultrasound. aa4 15:24 US Abdomen Limited In Process Unspecified. EDMS 15:40 Arm band placed on. sg 17:00 Abhinav Herbert MD is Referral Physician. jr8 17:45 No provider procedures requiring assistance completed. IV discontinued, intact, sg bleeding controlled, No redness/swelling at site. Pressure dressing applied. Administered Medications: 14:01 Drug: Phenergan 12.5 mg Route: IVP; Site: left antecubital; sg 14:02 Drug: Demerol 25 mg Route: IVP; Site: left antecubital; sg 14:30 Follow up: Response: No adverse reaction; Pain is decreased sg 14:44 Drug: Demerol 25 mg Route: IVP; Site: left antecubital; sg 15:07 Follow up: Response: No adverse reaction; Pain is unchanged, physician notified sg 16:00 Drug: Magnesium Sulfate 1 grams Route: IVPB; Infused Over: 1 hrs; Site: left sg antecubital; 17:20 Follow up: Response: No adverse reaction; IV Status: Completed infusion sg 16:00 CANCELLED (Physician Discretion): Potassium Chloride 40 mEq PO once jr8 16:20 Drug: GI Cocktail without - (Maalox Suspension 30 ml, Lidocaine Liquid 2 % 15 sg ml) Route: PO; 17:20 Follow up: Response: No adverse reaction; Pain is unchanged, physician notified sg Outcome: 17:00 Discharge ordered by . jr8 17:43 Discharged to home ambulatory, with family. sg 17:43 Condition: good 17:43 Discharge instructions given to patient, Instructed on discharge instructions, follow up and referral plans. safety practices, Demonstrated understanding of instructions, follow-up care. 17:46 Patient left the ED. sg Signatures: Dispatcher [employer] Tammie Kaur RN RN sv Gay, Steven, RN RN sg Mare Fenton aa4 Shan Lipscomb PA PA jr8 Chela Costa, sharepoint consultant EKG [facility] Yazan Haley bm6
[2017-09-13 17:53] VITALS: TEMP 98.3
[2017-09-13 17:54] VITALS: BP 138/97; O2SAT 98
== END 2017-09-13 17:46 | disposition home or self-care (01) ==
LOC: ER 13:29
DX: K80.20 Calculus of gallbladder without cholecystitis without obstruction (principal); R10.816 Epigastric abdominal tenderness; I10 Essential (primary) hypertension; Z88.8 Allergy status to other drugs, medicaments and biological substances
CPT/HCPCS: 36415; 71045; 76705; 80048; 80076; 83690; 83735; 83880; 84484; 85025; 85610; 93005; 96365; 96375; 99285; J2175; J2550; J3475

== ENCOUNTER 2017-09-14 15:02 | Observation (INO) | payer OTHER ==
[2017-09-14] MEDS ORDERED: KETOROLAC 30 MG/ML INJ ONE (15:50)
[2017-09-14] MEDS ORDERED: ONDANSETRON 4 MG/2 ML VIAL ONE (15:52)
[2017-09-14 15:58] LABS: Potassium 3.1 mEq/L (3.6-5.0)
[2017-09-14 16:05] LABS: Absolute Lymphocytes (CBC) 1.9 K/uL (0.7-4.9); Absolute Monocytes 0.8 K/uL (0.1-1.3); Absolute Neutrophil 10.5 K/uL (1.8-8.0); Basophils % 0.5 % (0-1.3); Bilirubin Direct 0.1 mg/dL (0-0.2); Bilirubin Total 0.4 mg/dL (0.3-1.2); Eosinophils % 0.6 % (0-4.4); Lymphocytes % 14.3 % (15.3-44.8); MCH 29.1 pg (27.0-35.0); MCV 86.8 fL (80-100); MPV 9.7 fL (7.6-11.3); Monocytes % 5.8 % (3.3-12.3); Protein, Total 7.2 g/dL (6.0-8.3); Protime INR 1.05; RBC Red Blood Cell Count 4.61 M/uL (3.86-4.86)
--- NOTE | 2017-09-14 16:09 | RAD REPORT ---
EXAM DESCRIPTION: RAD - Chest Single View - 09/14/2017 3:46 pm CLINICAL HISTORY: Chest and abdomen pain COMPARISON: 09/13/2017 FINDINGS: Portable technique limits examination quality. The lungs are grossly clear. The heart is normal in size. No displaced fractures. IMPRESSION: No acute intrathoracic process suspected.
--- NOTE | 2017-09-14 17:16 | EDPHYS ---
Physician Documentation [facility] Name: Phyllis Escalera Age: 47 yrs Sex: Female : 1970 Arrival Date: 09/14/2017 Time: 15:03 Bed 4 Private MD: ED Physician Mayco Kennedy HPI: 09/14 18:47 This 47 yrs old Female presents to ER via Ambulatory with complaints of Chest kdr Pain. 18:47 The patient or guardian reports chest pain that is located primarily in the substernal kdr area, diaphragm, xyphoid area, mid-sternal area and right breast. Onset: suddenly, just prior to arrival. The pain radiates to Pain radiates from RUQ to substernal area. Associated signs and symptoms: Pertinent positives: abdominal pain, diaphoresis, dizziness, nausea, shortness of breath, Pertinent negatives: syncope, vomiting. The chest pain is described as aching, burning, crushing, a pressure. Duration: The patient or guardian reports a single episode, that is still ongoing, The patient or guardian reports multiple episodes, that are intermittent, that wax and wane, with no pattern. Modifying factors: The symptoms are alleviated by nothing. the symptoms are aggravated by breathing, cough, deep breath, emotionally stressful situations, movement, palpation of area, twisting torso. Severity of pain: At its worst the pain was severe incapacitating in the emergency department the pain is unchanged. The patient has experienced similar episodes in the past, several times. Historical: - Allergies: 15:09 CALCIUM CHANNEL BLOCKING AGENTS-PHENYLALKYLAMINES; ss - PMHx: 15:09 Hypertension; ss - PSHx: 15:09 ; ss 18:10 Tubal ligation; ss - Immunization history:: Adult Immunizations up to date. - Social history:: Smoking status: unknown. ROS: 18:47 Constitutional: Negative for fever, chills, and weight loss, Eyes: Negative for injury, kdr pain, redness, and discharge, ENT: Negative for injury, pain, and discharge, Neck: Negative for injury, pain, and swelling, Respiratory: Negative for shortness of breath, cough, wheezing, and pleuritic chest pain, Back: Negative for injury and pain, : Negative for injury, bleeding, discharge, and swelling, MS/Extremity: Negative for injury and deformity, Skin: Negative for injury, rash, and discoloration, Neuro: Negative for headache, weakness, numbness, tingling, and seizure activity. Psych: Negative for depression, anxiety, suicide ideation, homicidal ideation, and hallucinations, Allergy/Immunology: Negative for hives, rash, and allergies, Endocrine: Negative for neck swelling, polydipsia, polyuria, polyphagia, and marked weight changes, Hematologic/Lymphatic: Negative for swollen nodes, abnormal bleeding, and unusual bruising. Exam: 18:47 Constitutional: This is a well developed, well nourished patient who is awake, alert, kdr and in moderate severe distress. Head/Face: Normocephalic, atraumatic. Eyes: Pupils equal round and reactive to light, extra-ocular motions intact. Lids and lashes normal. Conjunctiva and sclera are non-icteric and not injected. Cornea within normal limits. Periorbital areas with no swelling, redness, or edema. Neck: Trachea midline, no thyromegaly or masses palpated, and no cervical lymphadenopathy. Supple, full range of motion without nuchal rigidity, or vertebral point tenderness. No Meningismus. Chest/axilla: Normal chest wall appearance and motion. Nontender with no deformity. No lesions are appreciated. Cardiovascular: Regular rate and rhythm with a normal S1 and S2. No gallops, murmurs, or rubs. Normal PMI, no JVD. No pulse deficits. Respiratory: Lungs have equal breath sounds bilaterally, clear to auscultation and percussion. No rales, rhonchi or wheezes noted. No increased work of breathing, no retractions or nasal flaring. Abdomen/GI: Soft, non-tender, with normal bowel sounds. No distension or tympany. No guarding or rebound. No evidence of tenderness throughout. Back: No spinal tenderness. No costovertebral tenderness. Full range of motion. Skin: Warm, dry with normal turgor. Normal color with no rashes, no lesions, and no evidence of cellulitis. MS/ Extremity: Pulses equal, no cyanosis. Neurovascular intact. Full, normal range of motion. Neuro: Awake and alert, GCS 15, oriented to person, place, time, and situation. Cranial nerves II-XII grossly intact. Motor strength 5/5 in all extremities. Sensory grossly intact. Cerebellar exam normal. Normal gait. Psych: Awake, alert, with orientation to person, place and time. Behavior, mood, and affect are within normal limits. Vital Signs: 15:09 BP 132 / 82; Pulse 79; Resp 19; Pulse Ox 98% on R/A; ss 17:26 BP 104 / 68; Pulse 60; Resp 16; Pulse Ox 100% on R/A; la1 17:55 Temp 98.0(O); la1 19:01 BP 101 / 71; Pulse 64; Resp 16; la1 MDM: 17:16 Patient medically screened. kdr 18:47 Data reviewed: vital signs, nurses notes, lab test result(s), EKG, radiologic studies. kdr Counseling: I had a detailed discussion with the patient and/or guardian regarding: the historical points, exam findings, and any diagnostic results supporting the discharge/admit diagnosis, lab results, radiology results, the need for further work-up and treatment in the hospital. 09/14 15:08 Order name: Basic Metabolic Panel; Complete Time: 16:35 kdr 09/14 15:08 Order name: BNP; Complete Time: 16:38 kdr 09/14 15:08 Order name: CBC with Diff; Complete Time: 16:35 kdr 09/14 15:08 Order name: LFT's; Complete Time: 16:35 kdr 09/14 15:08 Order name: Magnesium; Complete Time: 16:35 kdr 09/14 15:08 Order name: PT-INR; Complete Time: 16:35 kdr 09/14 15:08 Order name: Ptt, Activated; Complete Time: 16:35 kdr 09/14 15:08 Order name: Troponin (emerg Dept Use Only); Complete Time: 16:35 kdr 09/14 15:08 Order name: XRAY Chest (1 view); Complete Time: 16:35 kdr 09/14 18:05 Order name: Urine Dipstick--Ancillary (enter results) 09/14 18:09 Order name: Urine --Ancillary (enter results) 09/14 18:45 Order name: Urine --Ancillary EDMS 09/14 18:46 Order name: Urine Dipstick-Ancillary EDMS 09/14 18:56 Order name: Lipase EDMS 09/14 15:08 Order name: EKG; Complete Time: 15:08 kdr 03/30 15:08 Order name: Cardiac monitoring; Complete Time: 15:43 kdr 09/14 15:08 Order name: EKG - Nurse/Tech; Complete Time: 15:43 kdr 09/14 15:08 Order name: IV Saline Lock; Complete Time: 15:43 kdr 09/14 15:08 Order name: Labs collected and sent; Complete Time: 15:43 kdr 09/14 15:08 Order name: O2 Per Protocol; Complete Time: 15:43 kdr 09/14 15:08 Order name: O2 Sat Monitoring; Complete Time: 15:43 kdr 09/14 15:08 Order name: Urine Dipstick-Ancillary (obtain specimen); Complete Time: 18:03 kdr 09/14 15:33 Order name: Labs - recollect needed; Complete Time: 15: ag 09/14 18:07 Order name: NPO: NPO after 2000 tonight; Complete Time: 18:07 ss Administered Medications: 15:43 Drug: TORadol 30 mg Route: IVP; Site: left antecubital; la1 19:42 Follow up: Response: No adverse reaction; Pain is decreased la1 15:43 Drug: Zofran 4 mg Route: IVP; Site: left antecubital; la1 19:42 Follow up: Response: No adverse reaction la1 Disposition: 09/14/17 17:16 Hospitalization ordered by Kaye Elizalde for Observation. Preliminary diagnosis are Abdominal and pelvic pain, Other chest pain. - Bed requested for Telemetry/MedSurg (observation). - Status is Observation. la1 - Condition is Fair. - Problem is new. - Symptoms have improved. UTI on Admission? No Signatures: Dispatcher [employer] Denise Townsend RN RN Mayco Kennedy MD MD [facility] Wanda Khoury RN RN ss Attema, Lee, RN RN la1 Mary Huynh Corrections: (The following items were deleted from the chart) 18:10 15:09 PSHx: Hysterectomy; ss ss
--- NOTE | 2017-09-14 17:16 | ER ---
Nurse's Notes [facility] Name: Phyllis Escalera Age: 47 yrs Sex: Female : 1970 Arrival Date: 09/14/2017 Time: 15:03 Bed 4 Private MD: Diagnosis: Abdominal and pelvic pain;Other chest pain Presentation: 09/14 15:06 Presenting complaint: Patient states: epigastric discomfort that began today at 1130 ss and got worse after she ate. Pt reports she was seen in ER yesterday and prior to that was admitted to hospital and told she had a stone in her gallbladder that was causing her pain. Transition of care: patient was not received from another setting of care. Onset of symptoms is unknown. Care prior to arrival: None. 15:06 Method Of Arrival: Ambulatory ss 15:06 Acuity: SILVERIO 3 ss Historical: - Allergies: 15:09 CALCIUM CHANNEL BLOCKING AGENTS-PHENYLALKYLAMINES; ss - PMHx: 15:09 Hypertension; ss - PSHx: 15:09 ; ss 18:10 Tubal ligation; ss - Immunization history:: Adult Immunizations up to date. - Social history:: Smoking status: unknown. Screenin:39 Abuse screen: Denies threats or abuse. Nutritional screening: No deficits noted. la1 Tuberculosis screening: No symptoms or risk factors identified. Fall Risk None identified. Assessment: 15:37 General: Appears uncomfortable, Behavior is cooperative. Pain: Complains of pain in la1 epigastric area and right upper quadrant Pain radiates to back Pain currently is 8 out of 10 on a pain scale. Pain began 4 hours ago. Neuro: Level of Consciousness is awake, alert, obeys commands, Oriented to person, place, time, situation. Cardiovascular: Heart tones S1 S2 present Capillary refill < 3 seconds Patient's skin is warm and dry. Rhythm is sinus rhythm. Respiratory: Airway is patent Respiratory effort is even, unlabored, Respiratory pattern is regular, symmetrical, Breath sounds are clear bilaterally. GI: Abdomen is round non-distended, Pt is actively vomiting bile, Bowel sounds present X 4 quads. Abd is soft X 4 quads Abdomen is tender to palpation in right upper quadrant and left upper quadrant. : No signs and/or symptoms were reported regarding the genitourinary system. 16:58 Reassessment: No changes from previously documented assessment. Patient and/or family la1 updated on plan of care and expected duration. Pain level reassessed. Patient is alert, oriented x 3, equal unlabored respirations, skin warm/dry/pink. 17:26 Reassessment: Patient appears in no apparent distress at this time. No changes from la1 previously documented assessment. Patient and/or family updated on plan of care and expected duration. Pain level reassessed. Patient is alert, oriented x 3, equal unlabored respirations, skin warm/dry/pink. Patient states feeling better. Patient states symptoms have improved. 19:01 Reassessment: Patient appears in no apparent distress at this time. No changes from la1 previously documented assessment. Patient and/or family updated on plan of care and expected duration. Pain level reassessed. Patient is alert, oriented x 3, equal unlabored respirations, skin warm/dry/pink. Vital Signs: 15:09 BP 132 / 82; Pulse 79; Resp 19; Pulse Ox 98% on R/A; ss 17:26 BP 104 / 68; Pulse 60; Resp 16; Pulse Ox 100% on R/A; la1 17:55 Temp 98.0(O); la1 19:01 BP 101 / 71; Pulse 64; Resp 16; la1 ED Course: 15:03 Patient arrived in ED. mr 15:07 Mayco Kennedy MD is Attending Physician. kdr 15:08 Triage completed. ss 15:09 Arm band placed on right wrist. ss 15:28 EKG done, by geotechnical intern. reviewed by Mayco Kennedy MD. at1 15:37 Pancho Carter, RN is Primary Nurse. la1 15:39 Placed in gown. Bed in low position. Call light in reach. enrollment representative on. Pulse ox la1 on. NIBP on. 15:39 No provider procedures requiring assistance completed. Inserted saline lock: 18 gauge la1 in left antecubital area, using aseptic technique. Blood collected. Patient maintains SpO2 saturation greater than 95% on room air. 15:46 XRAY Chest (1 view) In Process Unspecified. EDMS 15:49 X-ray completed. Portable x-ray completed in exam room. Patient tolerated procedure kc2 well. 17:15 Kaye Elizalde MD is Hospitalizing Provider. kdr 19:41 Patient admitted, IV remains in place. la1 Administered Medications: 15:43 Drug: TORadol 30 mg Route: IVP; Site: left antecubital; la1 19:42 Follow up: Response: No adverse reaction; Pain is decreased la1 15:43 Drug: Zofran 4 mg Route: IVP; Site: left antecubital; la1 19:42 Follow up: Response: No adverse reaction la1 Outcome: 17:16 Decision to Hospitalize by Provider. kdr 19:41 Admitted to Med/surg accompanied by tech, via wheelchair. la1 19:41 Condition: stable 19:41 Instructed on the need for admit. 19:42 Patient left the ED. la1 Signatures: Dispatcher [employer] EDMS Mayco Kennedy MD MD kdr Rivera, Maria mr Smirch, Shelby, RN RN ss gonzales, Amanda, health editor EKG Tat1 Pancho Carter RN RN Stefany Munroe2 Corrections: (The following items were deleted from the chart) 18:10 15:09 PSHx: Hysterectomy; ss ss
[2017-09-14] MEDS ORDERED: ONDANSETRON 4 MG/2 ML VIAL IV PRN (17:24)
[2017-09-14] MEDS ORDERED: ACETAMINOPHEN 500 MG TAB PO PRN (17:24)
[2017-09-14] MEDS ORDERED: MORPHINE 4 MG/ML SYR IV PRN (17:38)
[2017-09-14] MEDS ORDERED: CIPROFLOXACIN 400mg IV 400 MG/200 ML BAG IV SCH (18:00)
[2017-09-14 18:45] LABS: Urine Blood TRACE (NEG); Urine Glucose NEGATIVE (NEG); Urine Protein 1+ (NEG); Urine Specific Gravity 1.025 (1.005-1.030)
[2017-09-14 18:45] LABS: Urine Specific Gravity 1.025 (1.005-1.030)
[2017-09-14] MEDS: D5.45NS W/KCL 20MEQ 1,000 ML IV SCH (21:07)
[2017-09-14] MEDS: FAMOTIDINE 20 MG/2 ML VIAL IV SCH (21:08)
[2017-09-14 21:36] VITALS: BMI 32.8
[2017-09-14] MEDS: KCL 20 MEQ/100 mL IVPB 20 MEQ/100 ML BAG IV SCH ×2 (21:40→23:00)
[2017-09-14] MEDS: PIPER/TAZO/NS 3.375gm 3.375 GM/100 ML BAG IVPB SCH (21:40)
[2017-09-14] MEDS ORDERED: PIPERACIL/TAZO 3.375 GM VIAL IV ONE (21:49)
[2017-09-14] MEDS ORDERED: NA CHLORIDE 0.9% 100 ML ONE (21:53)
[2017-09-14] MEDS ORDERED: PANTOPRAZOLE 40 MG INJ IVP ONE (22:02)
[2017-09-14] MEDS ORDERED: FENTANYL CITR 100 MCG/2 ML IV ONE (22:02)
[2017-09-14] MEDS ORDERED: SODIUM CHLORIDE 0.9% 10ML INJ IV PRN (22:02)
--- NOTE | 2017-09-14 22:27 | CON ---
Date of Consultation: 09/14/2017 Brief History Of Present Illness: The patient is a 47-year-old female with the past medica l history significant for hypertension, who presented to the emergency room complaining of a retroste rnal chest pain with radiation through to her back. She states that she has heaviness in her chest a nd radiation to her left arm and her right side of her abdomen as well as epigastrium were tender to palpation. She did not note any food association. She has not changed her diet recently. She has h ad nausea and vomiting. No change in her bowel or bladder habits. She states that the pain occurred first approximately a week ago. She was admitted on 09/09/2017 with similar complaints and was ulti mately discharged home after cardiac workup and she went to see Dr. Herbert, who indicated he believed she might have a gallbladder issue by her report. Those records are not available during my examina tion. She had EGD and colonoscopy she states within the last few months, but she does not remember t he specifics of the report, other than hiatal hernia on the EGD and polyps on her colonoscopy. Past Medical History: Significant for hypertension and anxiety. Past Surgical History: She has had a and a tubal ligation. Home Medications: Include omeprazole, hydrochlorothiazide, olmesartan, and antianxiety medication. Allergies: TO CALCIUM CHANNEL BLOCKERS. Social History: She smokes currently and she drinks alcohol only socially. She denies recreational drug use. Review of Systems: A 10-point review of systems other than HPI, she denies. Physical Examination: General: At the time of my examination, she is awake, alert, and oriented. Psychiatric: She answers questions appropriately. HEENT: Normocephalic. Her sclerae are anicteric. Her mucous membranes are moist. Oropharynx is cl ear. Neck: Supple. No JVD. Chest: Normal expansion and excursion. Cardiovascular: Regular rate and rhythm. Pulmonary: Clear to auscultation bilaterally. Abdomen: Soft with mild epigastric and right upper quadrant and left upper quadrant tenderness to pa lpation. The tenderness is greatest in the right upper quadrant and epigastrium. She also has retro sternal chest pain to palpation. She has CV angle tenderness on the right. She has a negative Tracy y sign during my examination. She has no hernias present and well-healed scars evident. Extremities: She is wearing jeans during my examination and as such I could not complete a thorough examination, but she has a history of trauma to the right lower extremity by her report. Laboratory Data: Her white blood cell count was 13.4, hemoglobin was 13.4, hematocrit of 40.0, plate let count was 273. Her neutrophils are 78%. Her PT 12.4, INR 1.05, PTT is 25.4. Her sodium 136, po tassium 3.1, chloride 103, carbon dioxide 25, BUN 15, creatinine 1.11, glucose is 141, total bilirubi n 0.4, direct component 0.2, AST 20, ALT 25, alkaline phosphatase is normal at 83. Urine i s currently pending. She had imaging performed. She had an abdominal ultrasound on 09/13, which was officially read as sm all adherent gallstones versus polyps 4 mm or less in size. No mobile gallstones seen. No wall thic kening or pericholecystic fluid. She had a CT scan of the abdomen and pelvis performed on 12/14/2016 , which is officially read as fatty infiltration noted in the liver. No significant or suspicious ch anges from May 2016. This was last year, this CT scan. She had a CT dissection performed on , which showed negative CT of the aorta. No significant findings in the chest, abdomen, or u pper pelvis from the 09/09 CT angio. Assessment And Plan: This is a 47-year-old female, who comes in with signs and symptoms of chest kristina n with some radiation to the abdomen. 1.IV fluid hydration. 2.Antibiotic coverage with Zosyn. 3.I recommend a HIDA scan to better define if this has a possible gallbladder etiology, although thi s would be an atypical presentation. 4.Medical management to ensure the patient does not have an underlying cardiac condition. I will fo llow along with you. I have explained the risks, benefits, and alternatives to the above stated plan . The patient agrees to proceed as indicated. She states that as she currently sits, she is asympto matic and comfortable. Thank you for this interesting consult. CESILIA/RADHA Voice ID: [id number] Report ID: [id number]
[2017-09-14] MEDS ORDERED: LORazepam 2 MG/ML VIAL IV ONE (23:00)
--- NOTE | 2017-09-15 01:22 | HP ---
Date of Admission: 09/14/2017 Consultants: Tien Joyce MD, with General Surgery. Chief Complaint: Right upper quadrant abdominal pain. History Of Present Illness: The patient is a 47-year-old female with past medical history of hyperte nsion, who was in her usual state of health, who was recently discharged from the hospital on 018 for chest pain. The patient had a stress test, which was negative and was doing well until the d ay prior to admission when the patient came back to the ER for abdominal pain. She had an ultrasound of the abdomen done, which showed some small adherent gallstones versus polyps 4 mm or less in size. No mobile gallstones. No wall thickening or pericholecystic fluid. The patient was discharged niraj e, however, again had recurrence of her symptoms, went to her primary care physician, who has directe d her to the ER. The patient's abdominal pain is in the right upper quadrant, constant, radiates to her shoulder and to her back, worse with food. No alleviating factors. The patient's symptoms are c onstant, moderate, progressively worsening. Upon arrival to the ER, her vital signs were stable. Karyn kevin was afebrile. The patient's white count was elevated at 13.4. She was hypokalemic. The patient w as then referred for admission. Dr. Joyce with surgery was consulted by the ER. Past Medical History: Hypertension. Past Surgical History: Tubal ligation, . Allergies: CALCIUM CHANNEL BLOCKERS, WHICH CAUSE ANAPHYLAXIS. Medications: Reviewed. Family History: Positive for hypertension in her mother. Social History: The patient is a daily smoker. Smokes less than one pack per day. No alcohol use o r illicit drug use. Review of Systems: An 11-point system reviewed, negative except as per HPI. Physical Examination: Vital Signs: Blood pressure 132/82, heart rate 79, respirations 19, O2 saturation 98% on room air. General: Awake, alert, oriented x3, somewhat ill-appearing female, obese. HEENT: Normocephalic, atraumatic. PERRLA. EOMI. Dry mucous membranes. Oropharynx is clear. Conj unctiva is anicteric. Neck: Supple. No JVD. Trachea midline. CV: S1 and S2. Regular rate and rhythm. Peripheral pulses are present bilaterally. Respiratory: Clear to auscultation bilaterally. No wheezing. No stridor. No use of accessory musc les. Gastrointestinal: Abdomen is soft. Tenderness to palpation of the right upper quadrant and epigastr ic region. No guarding or rigidity. No palpable masses. Extremities: No clubbing, cyanosis, or edema. No calf tenderness. Neurologic: Cranial nerves 2 through 12 intact grossly. 5/5 bilateral upper and lower extremity str ength. Sensation intact to light touch. Speech is normal. Skin: No rashes. Normal skin turgor. Psych: Mood is somewhat anxious. Affect is full. Insight and judgment are good. Laboratory Data: Sodium 136, potassium 3.1, chloride 103, CO2 25. BUN 15, creatinine 1.11, glucose 141, calcium 9.3, magnesium 2. Total bilirubin 0.4. AST 20, ALT 25, alkaline phosphatase 83. Tropo melvin less than 0.03. BNP 13. WBC 13.4, H and H 13.4 and 40, platelets 273, neutrophils 78.8%. INR 1 .05. Diagnostic Data: Abdominal ultrasound from 09/13/2017, shows small adherent gallstones versus polyps , 4 mm or less in size. No mobile gallstones. No wall thickening or pericholecystic fluid. Chest x -ray, personally reviewed, shows no acute intrathoracic process. Assessment And Plan: A 47-year-old female with; 1.Right upper quadrant abdominal pain, elevated white count, possible acute cholecystitis. We will start on IV antibiotics. Keep n.p.o. Dr. Joyce with General surgery has been consulted. GI is un available. We will obtain HIDA scan in a.m. 2.Essential hypertension, stable. We will resume home medications. 3.Hypokalemia. We will replace and monitor. 4.Obesity. 5.Nicotine dependence with cigarette smoking, counseled. 6.Gastrointestinal and deep venous thrombosis prophylaxis with SCDs. No chemical anticoagulation se condary to possible surgery. SA/MODL Voice ID: [id number]
[2017-09-15] MEDS ORDERED: NA CHLORIDE 0.9% 100 ML ONE (02:17)
[2017-09-15] MEDS: PIPER/TAZO/NS 3.375gm 3.375 GM/100 ML BAG IVPB SCH ×2 (02:48→09:55)
[2017-09-15] MEDS: D5.45NS W/KCL 20MEQ 1,000 ML IV SCH ×2 (02:53→10:00)
[2017-09-15 05:16] LABS: Absolute Lymphocytes (CBC) 1.9 K/uL (0.7-4.9); Absolute Monocytes 0.6 K/uL (0.1-1.3); Absolute Neutrophil 5.2 K/uL (1.8-8.0); Basophils % 0.7 % (0-1.3); Eosinophils % 1.6 % (0-4.4); Hematocrit 35.5 % (36.0-45.0); MCH 29.4 pg (27.0-35.0); MCV 88.7 fL (80-100); MPV 9.8 fL (7.6-11.3); Monocytes % 7.6 % (3.3-12.3); RBC Red Blood Cell Count 4.01 M/uL (3.86-4.86)
[2017-09-15 05:52] VITALS: O2SAT 91
[2017-09-15 06:05] LABS: Albumin 3.1 g/dL (3.2-5.5); Bilirubin Total 0.8 mg/dL (0.3-1.2); Potassium 3.6 mEq/L (3.6-5.0); Protein, Total 5.6 g/dL (6.0-8.3)
[2017-09-15] MEDS ORDERED: KCL 20 MEQ/100 mL IVPB 20 MEQ/100 ML BAG IV SCH (07:00)
[2017-09-15 07:13] LABS: Urine Appearance CLOUDY; Urine Bilirubin NEGATIVE (NEG); Urine Blood NEGATIVE (NEG); Urine Color YELLOW; Urine Glucose NEGATIVE (NEG); Urine Protein NEGATIVE (NEG); Urine Specific Gravity >=1.030 (1.005-1.030); Urine Urobilinogen 0.2 mg/dL (0.2-1.0); Urine pH 5.5 (5.0-7.0)
[2017-09-15 07:45] LABS: Urine Microscopic Reflex ORDER UMIC
[2017-09-15 07:49] LABS: Urine Amorphous Sediment 1+ /HPF (NONE SEEN); Urine Bacteria >50 /HPF (<20); Urine Culture Reflex Order NOT NEEDED; Urine Mucus LIGHT /HPF (NONE SEEN); Urine RBC NONE SEEN /HPF (NONE SEEN)
[2017-09-15] MEDS ORDERED: INFLUENZA VACCINE (for 5y+) 0.5 ML DOSE IMVAC ONE (09:00)
[2017-09-15] MEDS: FAMOTIDINE 20 MG/2 ML VIAL IV SCH (09:38)
--- NOTE | 2017-09-15 11:16 | RAD REPORT ---
EXAM DESCRIPTION: NM - Hepatobiliary System Imagin - 09/15/2017 8:36 am CLINICAL HISTORY: Right upper quadrant pain. COMPARISON: 09/13/2017 TECHNIQUE: The patient was administered 6.5 mCi Tc99m Choletec. Imaging of the right upper quadrant was performed for up to 2.5 hours. FINDINGS: There is homogeneous uptake of radiopharmaceutical throughout the liver. There is no delay in visualization of the biliary tree or duodenum. The gallbladder was not visualized despite 2.5 hour delayed imaging. IMPRESSION: Nonvisualization of gallbladder may be related to recent meal, prolonged fasting or chol ecystitis.
--- NOTE | 2017-09-15 11:45 | P.PN ---
Subjective Date of Service: 09/15/17 Chief Complaint: Abdominal Pain Subjective: Improving (Patient states pain has improved but had one minor episode overnight. She was walking in [place] to go smoke.) Physical Examination - Vital Signs Temperature: 97.9 F Blood Pressure: 93/59 Pulse: 62 Respirations: 20 Pulse Ox (%): 96 - Physical Exam General: Alert, In no apparent distress, Cooperative HEENT: Mucous membr. moist/pink Gastrointestinal: Other (soft, mild TTP - improved from prior exam, negative murphys, no rebound. no guarding) Neurological: Normal gait, Normal speech - Studies Laboratory Data (last 24 hrs) 09/14/17 15:35: Lipase 30 09/14/17 15:35: PT 12.4, INR 1.05, APTT 25.4 09/14/17 15:35: WBC 13.4 H, Hgb 13.4, Hct 40.0, Plt Count 273 09/14/17 15:35: B-Natriuretic Peptide 13 09/14/17 15:35: Sodium 136, Potassium 3.1 L, BUN 15, Creatinine 1.11 H, Glucose 141 H, Magnesium 2.0, Total Bilirubin 0.4, AST 20, ALT 25, Alkaline Phosphatase 83 Assessment And Plan - Current Problems (Diagnosis) (1) Abdominal pain Current Visit: Yes Status: Acute Plan: Pain improved significantly from prior - patient noted outside smoking even though she was counselled that this may affect her recover and can possibly complicate any surgical procedures she may need to have, she walked outside immediately after conversation to go smoke. - HIDA showed non-visualization of gallbladder, however she does not appear to have cholecystitis by clinical exam and by her description, she has been NPO for >36 hrs - She does not require emergent surgery at this time. - serial exams - medical management - smoking cessation - gallstone diet discussed
[2017-09-15 13:05] VITALS: BP 116/68; TEMP 98.3
[2017-09-15] MEDS ORDERED: METRONIDAZOLE 500mg IVPB 500 MG/100 ML BAG IV SCH (17:30)
--- NOTE | 2017-09-16 02:14 | DS ---
Date of Discharge: 09/15/2017 Sports Management Professor: Tien Joyce MD, with General Surgery. Admitting Diagnoses: 1.Right upper quadrant abdominal pain. 2.Essential hypertension. 3.Hypokalemia. 4.Obesity, body mass index 32.9. 5.Nicotine dependence with cigarette smoking. Discharge Diagnoses: 1.Right upper quadrant abdominal pain. No acute cholecystitis, likely secondary to gallstones. HID A scan shows no visualization, cleared by Surgery for outpatient elective cholecystectomy. 2.Essential hypertension, stable. 3.Hypokalemia, replaced. 4.Obesity, body mass index 32. Counseled. 5.Nicotine dependence. Cigarette smoking, counseled. Hospital Course: The patient is a 47-year-old female who was recently discharged from the hospital a nd was seen for chest pain. She had a stress test which was negative. The patient came back for rec urrent abdominal pain and in the ER, was found to have no mobile gallstones, showed some adherent gal lstones versus polyps, 4 mm or less in size. The following day, she returned to the ER and was then admitted. She had a white count of 13,000. She was started on IV antibiotics. Kept n.p.o. IV flui ds were started. The patient was seen by Dr. Joyce with General surgery. HIDA scan was done, whic h showed nonvisualization of the gallbladder. May be related to recent meal, borderline fasting or c holecystitis. The patient was n.p.o. Her labs are within normal limits. Her white blood cell count is normalized. Kidney function is trending down. Her pain was significantly improved. She went do wn multiple times outside to smoke despite counseling from myself and from Dr. Joyce. The patient was then cleared for discharge from surgical standpoint to follow up with Dr. Joyce as an outpatien t and have elective cholecystectomy. Medications: As per medication reconciliation list. Diet: No fried greasy food. Followup: Follow up with PCP in 2-3 days. Follow up with general surgeon, Dr. Joyce in 1 week. R eturn to ER for worsening condition. Discharge Physical Examination: General: Awake, alert, oriented, no acute distress. CV: S1, S2. No murmurs. Respiratory: Moving air well bilaterally. Abdomen: Soft. No tenderness to palpation. No rebound. No guarding. Bowel sounds positive. Extremities: No clubbing, cyanosis, or edema. Neurologic: Nonfocal. SA/MODL Voice ID: [id number] Report ID: [id number]
--- NOTE | 2017-09-16 12:53 | EKG ---
Test Date: 2017-09-14 Test Time: 15:17:11 Button Facing Machine Operator: DAVID MEASUREMENT RESULTS: Intervals: Rate: 81 FL: 130 QRSD: 70 QT: 384 QTc: 446 [place]: P: 72 FL: 130 QRS: 60 T: 56 INTERPRETIVE STATEMENTS: Normal sinus rhythm Normal ECG Compared to ECG 09/13/2017 13:37:37 Prolonged QT interval no longer present Electronically Signed On 09-16-17 12:52:15 CDT by Robinson Crenshaw
== END 2017-09-15 12:37 | disposition home or self-care (01) ==
LOC: ER 15:02 → ERHOLD 17:10 → 2ND 19:23
PROVIDERS: ADMIT Family Medicine; ATTEND Family Medicine
DX: R10.11 Right upper quadrant pain; F17.210 Nicotine dependence, cigarettes, uncomplicated; I10 Essential (primary) hypertension; E87.6 Hypokalemia; E66.9 Obesity, unspecified; Z68.32 Body mass index [BMI] 32.0-32.9, adult
CPT/HCPCS: 36415; 71045; 78226; 80048; 80053; 80076; 81003; 81015; 81025; 83690; 83735; 83880; 84484; 85025; 85610; 85730; 93005; 94760; 96374; 96375; 99285; A9537; C9113; G0378; J2405; J2543; J3010

== ENCOUNTER 2017-09-16 10:51 | Emergency (ER) | payer OTHER ==
[2017-09-16] MEDS ORDERED: ONDANSETRON 4 MG/2 ML VIAL ONE (11:29)
[2017-09-16] MEDS ORDERED: LIDOCAINE VISCOUS 2% SOLN 15 ML UDC ONE (11:29)
[2017-09-16] MEDS ORDERED: MAGNE/ALUM HYDROXD 30 ML UCUP ONE (11:29)
[2017-09-16] MEDS ORDERED: NA CHLORIDE 0.9% 1,000 ML ONE (11:30)
[2017-09-16 11:34] LABS: Absolute Lymphocytes (CBC) 1.9 K/uL (0.7-4.9); Absolute Monocytes 0.4 K/uL (0.1-1.3); Absolute Neutrophil 5.9 K/uL (1.8-8.0); Basophils % 0.5 % (0-1.3); Eosinophils % 1.8 % (0-4.4); Hematocrit 37.6 % (36.0-45.0); Lymphocytes % 22.6 % (15.3-44.8); MCH 28.9 pg (27.0-35.0); MCV 88.5 fL (80-100); MPV 9.9 fL (7.6-11.3); Monocytes % 5.1 % (3.3-12.3); RBC Red Blood Cell Count 4.25 M/uL (3.86-4.86)
[2017-09-16 11:40] LABS: Potassium 3.7 mEq/L (3.6-5.0)
--- NOTE | 2017-09-16 11:52 | RAD REPORT ---
EXAM DESCRIPTION: CT - Abdomen Pelvis Wo Contrast - 09/16/2017 11:38 am CLINICAL HISTORY: Abdominal pain nausea since this morning. Epigastric pain COMPARISON: November 2016 TECHNIQUE: Computed axial tomography of the abdomen and pelvis was obtained. IV and oral contrast we re not requested. All CT scans are performed using dose optimization technique as appropriate and may include automated exposure control or mA/KV adjustment according to patient size. FINDINGS: The evaluation of solid organs, vessels and bowel is limited secondary to the lack of con trast administration. The liver, spleen, pancreas, adrenals and right kidney appear grossly normal. Two nonobstructing left renal calculi are present. The largest measures 2 millimeters The appendix is normal. There is no evidence of diverticulitis. . A very small umbilical hernias present The gallbladder is borderline dilated without wall thickening IMPRESSION: The gallbladder is borderline dilated without wall thickening Small nonobstructing left renal calculi
[2017-09-16] MEDS ORDERED: KETOROLAC 30 MG/ML INJ ONE (12:17)
--- NOTE | 2017-09-16 12:50 | ER ---
Nurse's Notes [facility] Name: Phyllis Escalera Age: 47 yrs Sex: Female : 1970 Arrival Date: 09/16/2017 Time: 10:52 Bed 26 Private MD: Diagnosis: Epigastric pain Presentation: 09/16 10:57 Presenting complaint: Patient states: I have been having epigastric pain radiating to la1 my back since 0900 this morning, the pain woke me up, I also "lost control of my left arm" and it went limp for a few seconds. pt reports nausea. I just had a HIDA scan and it was normal here. Transition of care: patient was not received from another setting of care. Onset of symptoms was September 16, 2017. Care prior to arrival: None. 10:57 Method Of Arrival: Ambulatory la1 10:57 Acuity: SILVERIO 2 la1 Historical: - Allergies: 10:58 CALCIUM CHANNEL BLOCKING AGENTS-PHENYLALKYLAMINES; la1 - PMHx: 10:58 Hypertension; la1 - Immunization history:: Adult Immunizations up to date. - Social history:: Smoking status: Patient uses tobacco products, smokes one-half pack cigarettes per day. Screenin:24 Abuse screen: Denies threats or abuse. Denies injuries from another. Nutritional aj screening: No deficits noted. Tuberculosis screening: No symptoms or risk factors identified. Fall Risk None identified. Assessment: 11:24 General: Appears in no apparent distress. comfortable, Behavior is calm, cooperative, aj appropriate for age. Pain: Complains of pain in chest, abdomen, right arm and left arm. Neuro: Level of Consciousness is awake, alert, obeys commands, Oriented to person, place, time, situation. Cardiovascular: Reports chest pain, nausea, vomiting, Capillary refill < 3 seconds in bilateral fingers Patient's skin is warm and dry. Rhythm is regular. Respiratory: Airway is patent Respiratory effort is even, unlabored, Respiratory pattern is regular, symmetrical. GI: Reports nausea, vomiting. Derm: Skin is intact, is healthy with good turgor, Skin is pink, warm \\T\\ dry. normal. 12:59 Reassessment: Patient appears in no apparent distress at this time. No changes from aj previously documented assessment. Patient and/or family updated on plan of care and expected duration. Pain level reassessed. Patient is alert, oriented x 3, equal unlabored respirations, skin warm/dry/pink. Patient denies pain at this time. Patient states feeling better. Patient states symptoms have improved. Vital Signs: 10:58 BP 120 / 77; Pulse 88; Resp 19; Temp 97.6; Pulse Ox 100% on R/A; Weight 86.64 kg; la1 Height 5 ft. 7 in. (170.18 cm); 12:00 BP 122 / 82; Pulse 64; Resp 17; Pulse Ox 100% on R/A; aj 12:14 BP 129 / 93; Pulse 55; Resp 19; Pulse Ox 99% on R/A; aj 12:59 BP 109 / 78; Pulse 60; Resp 17; Pulse Ox 99% on R/A; aj 10:58 Body Mass Index 29.91 (86.64 kg, 170.18 cm) la1 ED Course: 10:52 Patient arrived in ED. as 10:58 Triage completed. la1 10:58 Arm band placed on left wrist. la1 10:59 Mayco Kennedy MD is Attending Physician. kdr 11:02 Mare Marroquin, ANNEL is Primary Nurse. aj 11:14 EKG done, by ED staff, reviewed by Mayco Kennedy MD. em1 11:19 Inserted saline lock: 20 gauge in right forearm, using aseptic technique. Blood aj collected. 11:24 Patient has correct armband on for positive identification. Pulse ox on. NIBP on. aj 11:24 No provider procedures requiring assistance completed. Patient maintains SpO2 aj saturation greater than 95% on room air. 11:38 CT Abd/Pelvis - Without Cont In Process Unspecified. EDMS 11:38 CT completed. Patient tolerated procedure well. Patient moved back from CT. vr 12:59 IV discontinued, intact, bleeding controlled, No redness/swelling at site. Pressure aj dressing applied. Administered Medications: 11:18 Drug: GI Cocktail without - (Maalox Suspension 30 ml, Lidocaine Liquid 2 % 15 aj ml) Route: PO; 13:01 Follow up: Response: No adverse reaction; No change in condition aj 11:18 Drug: Zofran 4 mg Route: IVP; Site: right forearm; aj 13:01 Follow up: Response: No adverse reaction; No change in condition aj 11:18 Drug: NS 0.9% 1000 ml Route: IV; Rate: 1 bolus; Site: right forearm; aj 13:01 Follow up: Response: No adverse reaction; IV Status: Completed infusion; IV Intake: aj 1000ml 12:00 Drug: TORadol 30 mg Route: IVP; Site: right forearm; aj 13:01 Follow up: Response: No adverse reaction; Pain is decreased aj Intake: 13:01 IV: 1000ml; Total: 1000ml. aj Outcome: 12:50 Discharge ordered by . malcom 12:59 Discharged to home ambulatory. aj 12:59 Condition: good 12:59 Discharge instructions given to patient, Instructed on discharge instructions, follow up and referral plans. medication usage, Demonstrated understanding of instructions, follow-up care, medications, Prescriptions given X 2. 13:02 Patient left the ED. aj Signatures: Dispatcher [employer] Mare Wong, RN Mayco Salas MD MD kdr Martinez, Tan Rowe1 Nadja Worley Lee RN RN la1
--- NOTE | 2017-09-16 12:50 | EDPHYS ---
Physician Documentation [facility] Name: Phyllis Escalera Age: 47 yrs Sex: Female : 1970 Arrival Date: 09/16/2017 Time: 10:52 Bed 26 Private MD: ED Physician Mayco Kennedy HPI: 09/16 11:57 This 47 yrs old Female presents to ER via Ambulatory with complaints of Chest kdr Pain, Vomiting. 11:57 The patient or guardian reports chest pain that is located primarily in the substernal kdr area, epigastric area, The patient presents again for similar c/o as on her last visit. She states that she has epigastric pain which radiates into her substernal and left chest area. She has been seen here and admitted several times for the same complaint. She recently had her GB evaluated with a HIDA scan which was reported as being negative.. Onset: suddenly, at 09:30. The pain radiates to Epigastric to left chest . Associated signs and symptoms: Pertinent positives: abdominal pain, diaphoresis. The chest pain is described as aching, burning, crushing, a heaviness, causing indigestion, a pressure. Duration: The patient or guardian reports a single episode, that is still ongoing, and unchanged. Severity of pain: At its worst the pain was severe incapacitating just prior to arrival, in the emergency department the pain is unchanged. Historical: - Allergies: 10:58 CALCIUM CHANNEL BLOCKING AGENTS-PHENYLALKYLAMINES; la1 - PMHx: 10:58 Hypertension; la1 - Immunization history:: Adult Immunizations up to date. - Social history:: Smoking status: Patient uses tobacco products, smokes one-half pack cigarettes per day. ROS: 12:15 Constitutional: Negative for fever, chills, and weight loss, Eyes: Negative for injury, kdr pain, redness, and discharge, Neck: Negative for injury, pain, and swelling, Respiratory: Negative for shortness of breath, cough, wheezing, and pleuritic chest pain, Back: Negative for injury and pain, : Negative for injury, bleeding, discharge, and swelling, MS/Extremity: Negative for injury and deformity, Skin: Negative for injury, rash, and discoloration, Neuro: Negative for headache, weakness, numbness, tingling, and seizure activity. Psych: Negative for depression, anxiety, suicide ideation, homicidal ideation, and hallucinations, Allergy/Immunology: Negative for hives, rash, and allergies, Endocrine: Negative for neck swelling, polydipsia, polyuria, polyphagia, and marked weight changes, Hematologic/Lymphatic: Negative for swollen nodes, abnormal bleeding, and unusual bruising. 12:15 Cardiovascular: Positive for chest pain, Negative for edema, orthopnea, palpitations, paroxysmal nocturnal dyspnea, acute changes. 12:15 Abdomen/GI: Positive for abdominal pain, nausea, Negative for vomiting, diarrhea, constipation, abdominal cramps, abdominal distension, anorexia, dysphagia, hematemesis, black/tarry stool, rectal pain, rectal bleeding. Exam: 12:15 Constitutional: This is a well developed, well nourished patient who is awake, alert, kdr and in moderate distress. Head/Face: Normocephalic, atraumatic. Eyes: Pupils equal round and reactive to light, extra-ocular motions intact. Lids and lashes normal. Conjunctiva and sclera are non-icteric and not injected. Cornea within normal limits. Periorbital areas with no swelling, redness, or edema. Neck: Trachea midline, no thyromegaly or masses palpated, and no cervical lymphadenopathy. Supple, full range of motion without nuchal rigidity, or vertebral point tenderness. No Meningismus. Chest/axilla: Normal chest wall appearance and motion. Nontender with no deformity. No lesions are appreciated. Cardiovascular: Regular rate and rhythm with a normal S1 and S2. No gallops, murmurs, or rubs. Normal PMI, no JVD. No pulse deficits. Respiratory: Lungs have equal breath sounds bilaterally, clear to auscultation and percussion. No rales, rhonchi or wheezes noted. No increased work of breathing, no retractions or nasal flaring. Back: No spinal tenderness. No costovertebral tenderness. Full range of motion. Skin: Warm, dry with normal turgor. Normal color with no rashes, no lesions, and no evidence of cellulitis. MS/ Extremity: Pulses equal, no cyanosis. Neurovascular intact. Full, normal range of motion. Neuro: Awake and alert, GCS 15, oriented to person, place, time, and situation. Cranial nerves II-XII grossly intact. Motor strength 5/5 in all extremities. Sensory grossly intact. Cerebellar exam normal. Normal gait. Psych: Awake, alert, with orientation to person, place and time. Behavior, mood, and affect are within normal limits. 12:15 Abdomen/GI: Inspection: abdomen appears normal, Bowel sounds: normal, Palpation: soft, mild abdominal tenderness, in the epigastric area, mass, is not appreciated, rebound tenderness, is not appreciated. Vital Signs: 10:58 BP 120 / 77; Pulse 88; Resp 19; Temp 97.6; Pulse Ox 100% on R/A; Weight 86.64 kg; la1 Height 5 ft. 7 in. (170.18 cm); 12:00 BP 122 / 82; Pulse 64; Resp 17; Pulse Ox 100% on R/A; aj 12:14 BP 129 / 93; Pulse 55; Resp 19; Pulse Ox 99% on R/A; aj 12:59 BP 109 / 78; Pulse 60; Resp 17; Pulse Ox 99% on R/A; aj 10:58 Body Mass Index 29.91 (86.64 kg, 170.18 cm) la1 MDM: 12:15 Data reviewed: vital signs, nurses notes, lab test result(s), radiologic studies. kdr 12:50 Patient medically screened. kdr 12:53 ED course: The patient had transient relief from the GI Cocktail but more significant kdr and sustained relief (as last time) with the Toradol. 09/16 11:06 Order name: CBC with Diff; Complete Time: 12:54 kdr 09/16 11:06 Order name: Chem 7; Complete Time: 12:54 kdr 09/16 11:06 Order name: Troponin (emerg Dept Use Only); Complete Time: 12:54 kdr 09/16 11:06 Order name: Lipase; Complete Time: 12:54 kdr 09/16 11:09 Order name: CT Abd/Pelvis - Without Cont; Complete Time: 12:54 kdr 09/16 11:06 Order name: EKG - Nurse/Tech; Complete Time: 11:14 kdr Administered Medications: 11:18 Drug: GI Cocktail without - (Maalox Suspension 30 ml, Lidocaine Liquid 2 % 15 aj ml) Route: PO; 13:01 Follow up: Response: No adverse reaction; No change in condition aj 11:18 Drug: Zofran 4 mg Route: IVP; Site: right forearm; aj 13:01 Follow up: Response: No adverse reaction; No change in condition aj 11:18 Drug: NS 0.9% 1000 ml Route: IV; Rate: 1 bolus; Site: right forearm; aj 13: Follow up: Response: No adverse reaction; IV Status: Completed infusion; IV Intake: aj 1000ml 12:00 Drug: TORadol 30 mg Route: IVP; Site: right forearm; aj 13: Follow up: Response: No adverse reaction; Pain is decreased aj Disposition: 09/16/17 12:50 Discharged to Home. Impression: Epigastric pain. - Condition is Fair. - Discharge Instructions: Abdominal Pain, Women, Abdominal Pain, Adult, [id number]. - Prescriptions for ketorolac 10 mg Oral tablet - take 1 tablet by ORAL route every 4-6 hours As needed not to exceed 40 mg in 24hrs; 16 tablet. Pepcid 20 mg Oral Tablet - take 1 tablet by ORAL route once daily; 20 tablet. - Medication Reconciliation Form, Thank You Letter, Antibiotic Education, Prescription Opioid Use form. - Follow up: Private Physician; When: 2 - 3 days; Reason: If symptoms return, Further diagnostic work-up, Recheck today's complaints, Continuance of care, Re-evaluation by your physician. - Problem is an acute exacerbation. - Symptoms have improved. Signatures: Dispatcher [employer] Mare Wong, Mayco Salas RN, MD MD [facility] Pancho Carter RN RN la1
[2017-09-16 13:09] VITALS: TEMP 97.6
[2017-09-16 13:11] VITALS: O2SAT 99
[2017-09-16 13:13] VITALS: BP 109/78
--- NOTE | 2017-09-17 08:49 | EKG ---
Test Date: 2017-09-16 Test Time: 11:10:15 Public Policy Mediator: JACQUELINE MEASUREMENT RESULTS: Intervals: Rate: 68 RI: 132 QRSD: 70 QT: 436 QTc: 463 [place]: P: 18 RI: 132 QRS: 46 T: 42 INTERPRETIVE STATEMENTS: Normal sinus rhythm Low voltage QRS Borderline ECG Compared to ECG 09/14/2017 15:17:11 Low QRS voltage now present Electronically Signed On 09-17-17 08:48:30 CDT by Robinson Crenshaw
== END 2017-09-16 13:02 | disposition home or self-care (01) ==
LOC: ER 10:51
DX: R10.13 Epigastric pain (principal); I10 Essential (primary) hypertension; F17.210 Nicotine dependence, cigarettes, uncomplicated; Z88.8 Allergy status to other drugs, medicaments and biological substances
CPT/HCPCS: 36415; 74176; 80048; 83690; 84484; 85025; 93005; 96361; 96374; 96375; 99285; J2405; J7030

== ENCOUNTER 2017-09-21 06:31 | Day surgery (SDC) | payer OTHER ==
[2017-09-19 16:51] LABS: Absolute Lymphocytes (CBC) 2.2 K/uL (0.7-4.9); Absolute Monocytes 0.5 K/uL (0.1-1.3); Absolute Neutrophil 7.6 K/uL (1.8-8.0); Basophils % 0.6 % (0-1.3); Eosinophils % 1.1 % (0-4.4); Hematocrit 40.3 % (36.0-45.0); Lymphocytes % 20.8 % (15.3-44.8); MCH 29.7 pg (27.0-35.0); MCV 88.8 fL (80-100); RBC Red Blood Cell Count 4.53 M/uL (3.86-4.86)
[2017-09-21] MEDS ORDERED: Ringers Lactate 1,000 ML IV ONE ×2 (07:09→08:31)
[2017-09-21] MEDS ORDERED: CEFOXITIN/SWI 1gm 1 GM/10 ML SYR ONE (07:09)
[2017-09-21] MEDS ORDERED: PROPOFOL 200 MG/20 ML VIAL IV ONE (07:28)
[2017-09-21] MEDS ORDERED: ROCURONIUM 50 MG/5 ML VIAL IV ONE (07:28)
[2017-09-21] MEDS ORDERED: FENTANYL CITR 100 MCG/2 ML ONE ×2 (07:28→08:12)
[2017-09-21] MEDS ORDERED: MIDAZOLAM HCL 2 MG/2 ML INJ ONE ×2 (07:29→08:59)
[2017-09-21] MEDS ORDERED: LIDOCAINE 1% MPF 5 ML VIAL ONE (07:29)
[2017-09-21] MEDS ORDERED: GLYCOPYRROLATE 0.2 MG/ML SYR ONE ×4 (08:10→09:58)
[2017-09-21] MEDS ORDERED: ONDANSETRON 4 MG/2 ML VIAL ONE ×2 (08:10→09:57)
[2017-09-21] MEDS ORDERED: KETOROLAC 30 MG/ML INJ ONE ×2 (08:10→09:57)
[2017-09-21] MEDS ORDERED: NEOSTIGMINE 1 MG/ML -5 ML SYRINGE ONE ×2 (08:12→09:57)
[2017-09-21] MEDS: MORPHINE 10 MG/ML VIAL ONE ×4 (08:17→08:52)
[2017-09-21] MEDS: MEPERIDINE HCL 50 MG/ML AMP ONE ×2 (08:27→08:37)
[2017-09-21] MEDS ORDERED: PROMETHAZINE 25 MG/ML VIAL ONE (08:46)
[2017-09-21] MEDS ORDERED: DEXAMETHASONE 10 MG/ML VIAL ONE (09:27)
[2017-09-21] MEDS ORDERED: MORPHINE 10 MG/ML VIAL ONE (10:06)
[2017-09-21] MEDS ORDERED: HYDROCODONE/APAP 7.5/325 MG TAB ONE (10:11)
[2017-09-21] MEDS ORDERED: LANO/MINERAL OIL/PETRO 3.5 GM ONE (10:11)
[2017-09-21 11:49] VITALS: BP 141/82; TEMP 97.5; O2SAT 97
--- NOTE | 2017-09-21 19:19 | OP ---
Date of Procedure: 09/21/2017 Surgeon: Anthony Laurent MD Donor Services Technician: RAMIREZ Benavides. Preoperative Diagnosis: Acalculous cholecystitis. Postoperative Diagnosis: Acalculous cholecystitis. Procedure: Laparoscopic cholecystectomy. Estimated Blood Loss: Minimal. Specimen: Gallbladder. Finding: As above. Anesthesia: General. Complications: None. Disposition: The patient tolerated the procedure in stable condition, taken to Recovery in good gene ral condition. Operative Note: The patient was brought to the OR and placed in supine position. General anesthesia begun. The patient was prepped and draped in usual sterile fashion. Marcaine 0.5% was applied loca lly. A 15-blade was used to make a 2 cm supraumbilical midline incision. Subcutaneous tissue divide d. The fascia was identified and divided. A #1 Vicryl stay suture was placed. Peritoneal cavity wa s entered with blunt dissection. A 12-mm trocar placed into the peritoneal cavity under direct visio n. Pneumoperitoneum was established. Three 5 mm trocars were placed; 1 in the epigastrium just to t he right of midline, and 2 in the right subcostal region. Laparoscopy revealed a distended gallbladd er, which was aspirated of clear white bile consistent with hydrops and acute cholecystitis. Then fu ndus was retracted superiorly. Infundibulum identified and retracted inferolaterally. Cystic duct a nd cystic artery were clearly identified with blunt dissection. Clips placed. Both structures divid ed. Cautery was used to remove the gallbladder from the liver bed. Bleeding on the liver bed was co ntrolled with cautery. The gallbladder was retrieved through the umbilicus via an EndoCatch bag. Ri t upper quadrant examined. No evidence of bleeding or bile leakage appreciated. Subsequently, all trocars were removed under direct vision. Stay sutures were tied to each other to reapproximate the fascial defect. Subcu wounds were irrigated. Bleeding controlled with cautery. A 3-0 chromic was used to approximate the subcutaneous tissue and close the skin. Sterile dressing was applied. The p atient was awakened and taken to Recovery in good general condition. /MODL Voice ID: [id number] Report ID: [id number]
--- NOTE | 2017-09-21 19:19 | DS ---
Date of Discharge: 09/21/2017 Discharge Note: The patient will go to Day Surgery and home when stable. Disposition: Home. Condition: Stable. Discharge Instructions: Resume home medications and diet. Activity as tolerated. No heavy lifting. Remove outer dressing in 2 days. Shower. Keep wound clean and dry. Follow up in my office next T , call for appointment. Tylenol No. 4, one tablet p.o. q.4 p.r.n. pain. /RADHA Voice ID: [id number] Report ID: [id number]
== END 2017-09-21 10:30 | disposition home or self-care (01) ==
LOC: OR 06:31
PROVIDERS: ATTEND Surgery
PROC: 0FT44ZZ Resection of Gallbladder, Percutaneous Endoscopic Approach (ICD-10-PCS; principal; 2017-09-21 07:30)
DX: K80.12 Calculus of gallbladder with acute and chronic cholecystitis without obstruction (principal); I10 Essential (primary) hypertension; K21.9 Gastro-esophageal reflux disease without esophagitis; F17.200 Nicotine dependence, unspecified, uncomplicated; M19.90 Unspecified osteoarthritis, unspecified site; Z82.49 Family history of ischemic heart disease and other diseases of the circulatory system
CPT/HCPCS: 36415; 80048; 81025; 85025; 88304; 88305; J1100; J2175; J2250; J2405; J2550; J2710; J3010

== ENCOUNTER 2019-02-13 08:34 | Day surgery (SDC) | payer OTHER ==
--- NOTE | 2019-02-13 08:31 | RAD REPORT ---
EXAM DESCRIPTION: RAD - Chest Pa And Lat (2 Views) - 02/13/2019 8:25 am CLINICAL HISTORY: preop Chest pain. COMPARISON: Chest Single View dated 09/14/2017; Chest Single View dated 09/13/2017; Chest Single View dated 09/09/2017; Chest Single View dated 04/13/2016 FINDINGS: The lungs are clear. The heart is normal in size. No displaced fractures. IMPRESSION: No acute or concerning finding suspected.
[2019-02-13] MEDS ORDERED: LIDOCAINE 2% MPF 5 ML VIAL ONE (08:47)
[2019-02-13] MEDS ORDERED: FENTANYL CITR 100 MCG/2 ML ONE (08:47)
[2019-02-13] MEDS ORDERED: MIDAZOLAM HCL 2 MG/2 ML INJ ONE (08:47)
[2019-02-13] MEDS ORDERED: PROPOFOL 200 MG/20 ML VIAL IV ONE (08:47)
[2019-02-13] MEDS ORDERED: Ringers Lactate 1,000 ML IV ONE (08:48)
[2019-02-13] MEDS ORDERED: CEFOXITIN/SWI 1gm 1 GM/10 ML SYR ONE (08:56)
[2019-02-13] MEDS ORDERED: MEPERIDINE HCL 25 MG/0.5 ML ONE (09:14)
[2019-02-13] MEDS ORDERED: dexAMETHasone 10 MG/ML VIAL ONE (09:18)
[2019-02-13] MEDS ORDERED: ONDANSETRON 4 MG/2 ML VIAL ONE (09:25)
[2019-02-13] MEDS ORDERED: NS 0.9% VIAL 30 ML ONE (09:26)
[2019-02-13] MEDS: HYDROMORPHONE HCL 2 MG/ML inj ONE ×4 (10:19→10:26)
[2019-02-13] MEDS ORDERED: PROMETHAZINE 25 MG/ML VIAL ONE (10:23)
[2019-02-13] MEDS ORDERED: KETOROLAC 30 MG/ML INJ ONE (10:27)
[2019-02-13] MEDS: MEPERIDINE HCL 50 MG/ML ONE ×2 (10:30→10:39)
[2019-02-13] MEDS ORDERED: MEPERIDINE HCL 50 MG/ML ONE (10:43)
--- NOTE | 2019-02-13 14:57 | EKG ---
Test Date: 2019-02-13 Test Time: 08:30:50 Economics Lecturer: THOMAS MEASUREMENT RESULTS: Intervals: Rate: 63 [place]: 140 QRSD: 74 QT: 404 QTc: 413 [place]: P: 58 [place]: 140 QRS: 36 T: 47 INTERPRETIVE STATEMENTS: Normal sinus rhythm Possible Left atrial enlargement Low voltage QRS Borderline ECG Compared to ECG 09/16/2017 11:10:15 No significant changes Electronically Signed On 02-13-19 14:56:13 CDT by Bernard Swann
[2019-02-13 15:22] VITALS: BP 127/72; TEMP 98; O2SAT 98
--- NOTE | 2019-02-13 21:21 | OP ---
Date of Procedure: 02/13/2019 Surgeon: Anthony Laurent MD Preoperative Diagnosis: Symptomatic anal fissure. Postoperative Diagnosis: Symptomatic anal fissure. Procedure: Exam under anesthesia, rigid proctoscopy, fissurectomy and left lateral internal sphincte rotomy. Estimated Blood Loss: Minimal. Specimen: Fissure. Findings: As above. Anesthesia: General. Complications: None. Disposition: The patient tolerated the procedure in stable condition and taken to Recovery in good g eneral condition. Description Of Procedure: Patient was brought to the OR and placed in supine position. General anes thesia was begun. Patient was prepped and draped, in the lithotomy position. 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 Marcaine 0.5% was infiltrated locally for po stop pain control. Sterile dressing was applied. The patient was awakened and taken to Recovery in good general condition. Discharge Note: The patient will go to day surgery and home when stable. Disposition: Home. Condition: Stable. Discharge Instructions: Resume home medications and diet. Activity as tolerated. No heavy lifting. Sitz baths q.i.d. MiraLax as ordered. High-fiber diet. Procto-HC 2.5% to anus as directed. Tyle nol No.3 one tablet p.o. q.4 p.r.n. pain. Colace 100 mg p.o. b.i.d. Followup in my office in 2 week s, call for appointment. THONY/RADHA Voice ID: [id number] Report ID: [id number]
== END 2019-02-13 12:35 | disposition home or self-care (01) ==
LOC: OR 08:34
PROVIDERS: ATTEND Surgery
PROC: 0DJD8ZZ Inspection of Lower Intestinal Tract, Via Natural or Artificial Opening Endoscopic (ICD-10-PCS; 2019-02-13)
PROC: 0D8R0ZZ Division of Anal Sphincter, Open Approach (ICD-10-PCS; principal; 2019-02-13 09:00)
DX: K60.2 Anal fissure, unspecified (principal); K21.9 Gastro-esophageal reflux disease without esophagitis; E66.9 Obesity, unspecified; Z68.35 Body mass index [BMI] 35.0-35.9, adult; F17.200 Nicotine dependence, unspecified, uncomplicated; Z90.49 Acquired absence of other specified parts of digestive tract; Z80.3 Family history of malignant neoplasm of breast; Z83.3 Family history of diabetes mellitus; Z82.49 Family history of ischemic heart disease and other diseases of the circulatory system
CPT/HCPCS: 93005; 81025; 88304; 71046; 46200; 45300; J2704; J2550; J2250; J1170; J3010; J1100; J2175 ×3; J2405

== ENCOUNTER 2021-07-08 10:26 | Inpatient (IN) | payer OTHER ==
--- OUTSIDE RECORDS SUMMARY | 2021-07-08 10:30 | XMS REPORT | Continuity of Care Document ---
:1970 Author Organization [facility] t Address [address] [place] [address] Care Team Providers Name Role Phone Piedad Primary Care Physician FISH Attending Clinician Unavailable Jefferson NATH Attending Clinician JEFFERSON Admitting Clinician Unavailable Payers Payer Name Policy Type Policy Number Effective Date Expiration Date S ource Problems Condition Condition Condition Status Onset Resolution Last Treating Co mments Source Name Details Category Date Date Treatment Clinician Date Hidradenit Hidradenit Disease Active 2020-06 U nivers is is 1-08 ity [place] supp[place] Hot Hot Disease Active 2020-06 Univers flashes flashes 1-08 ity of 00:00: [place] 00 Medical Branch Allergies, Adverse Reactions, Alerts Allergy Allergy Status Severity Reaction(s) Onset Inactive Treating Comm ents Source Name Type Date Date Clinician Calcium Propensi Active Anaphylaxis 2020-06 Un ibeth Channel ty to 1-04 ity of Blocking adverse 00:00: [place] Agents-D reaction 00 Medica l ihydropy s Branch ridines CALCIUM Drug Active Anaphylaxis 2020-06 Univ ers CHANNEL Class 1-04 ity of BLOCKING 00:00: [place] AGENTS-D 00 Medical IHYDROPY Branch RIDINES Social History Social Habit Start Date Stop Date Quantity Comments Source Exposure to Not sure University of SARS-CoV-2 [facility] (event) Branch Alcohol intake 2021-06-03 2021-06-03 Current drinker Unive rsity of 00:00:00 00:00:[address] [facility] (finding) Branch Tobacco use and 2021-04-21 2021-04-21 Never used Universit y of exposure 00:00:00 00:00:00 [facility] Sex [birth year] At [birth year] Universit y of 00:00:00 00:00:00 [facility] Smoking Status Start Date Stop Date Source Current every day smoker 2021-04-21 00:00:00 Uni versity [facility] Medications Ordered Filled Start Stop Current Ordering Indication Dosage Frequency Signature Comments Components Source Medication Medication Date Date Medication? Clinician (SIG) Name Name CLINDAMYCIN Yes [id number] APPLY TO Univers 1 % gel 1-07 AFFECTED ity of 00:00: AREA TWICE [place] 00 A DAY Medical Branch PARoxetine 2020-06 Yes [id number] 10mg Take 1 Univers (PAXIL) 10 2-01 tablet by ity of mg tablet 00:00: mouth [place] 00 daily. Medical Branch PARoxetine 2020-06 Yes [id number] 10mg Take 1 Univers (PAXIL) 10 2-01 tablet by ity of mg tablet 00:00: mouth [place] 00 daily. Medical Branch PARoxetine 2020-06 Yes [id number] 10mg Take 1 Univers (PAXIL) 10 2-01 tablet by ity of mg tablet 00:00: mouth [place] 00 daily. [facility] Branch gabapentin 2020-06 Yes Take by Uni vers ER 300 mg 1-04 mouth ity of tablet, 13:51: daily. [place] extended 54 Medical release 24 Branch hr gabapentin 2020-06 Yes Take by Uni vers ER 300 mg 1-04 mouth ity of tablet, 13:51: daily. [place] extended 54 Medical release 24 Branch hr gabapentin 2020-06 Yes Take by Uni vers ER 300 mg 1-04 mouth ity of tablet, 13:51: daily. [place] extended 54 Medical release 24 Branch hr gabapentin 2020-06 Yes Take by Uni vers ER 300 mg 1-04 mouth ity of tablet, 13:51: daily. [place] extended 54 Medical release 24 Branch hr PARoxetine 2020-06 Yes [id number] 10mg Take 1 Univers (PAXIL) 10 1-04 tablet by ity of mg tablet 00:00: mouth [place] 00 daily. Medical Branch clindamycin 2020-06 Yes [id number] Apply to Univers 1 % gel 1-04 area(s) 2 ity of 00:00: (two) [place] 00 times Medical daily. Branch clindamycin 2020-06 Yes [id number] Apply to Univers 1 % gel -04 area(s) 2 ity of 00:00: (two) [place] 00 times Medical daily. Branch clindamycin 2020-06 Yes [id number] Apply to Univers 1 % gel - area(s) 2 ity of 00:00: (two) [place] 00 times Medical daily. Branch clindamycin 2020-06- No [id number] Apply to Univers 1 % gel -06-24 area(s) 2 ity of 00:00: 00:00 (two) [place] 00 :00 times Medical daily. Branch PARoxetine 2020-06- No [id number] 10mg Take 1 Univers (PAXIL) 10 06-21 tablet by ity of mg tablet 00:00: 00:00 mouth [place] 00 :00 daily. Medical Branch ferrous 2020-06 Yes Univers sulfate 325 0-20 ity of mg (65 mg 00:00: [place] iron) 00 Medical tablet Branch ferrous 2020-06 Yes Univers sulfate 325 0-20 ity of mg (65 mg 00:00: [place] iron) 00 Medical tablet Branch ferrous 2020-06 Yes Univers sulfate 325 0-20 ity of mg (65 mg 00:00: [place] iron) 00 Medical tablet Branch ferrous 2020-06 Yes Univers sulfate 325 0-20 ity of mg (65 mg 00:00: [place] iron) 00 Medical tablet Branch olmesartan Yes Univers 40 mg 8-30 ity of tablet 00:00: 00 Medical [place] olmesartan Yes Univers 40 mg 8-30 ity of tablet 00:00: 00 [facility] olmesartan Yes Univers 40 mg 8-30 ity of tablet 00:00: [facility] olmesartan Yes Univers 40 mg 8-30 ity of tablet 00:00: [facility] esomeprazol Yes Univer s e 40 mg 8-19 ity of capsule 00:00: [facility] esomeprazol Yes Univer s e 40 mg 8-19 ity of capsule 00:00: [facility] esomeprazol Yes Univer s e 40 mg 8-19 ity of capsule 00:00: [place] [facility] esomeprazol 2020-0 Yes Univer s e 40 mg 8-19 ity of capsule 00:00: [place] [facility] Branch hydroCHLORO 2020-0 Yes Univer s thiazide 25 8-16 ity of mg tablet 00:00: [place] [facility] hydroCHLORO 2020-0 Yes Univer s thiazide 25 8-16 ity of mg tablet 00:00: [place] [facility] hydroCHLORO 2020-0 Yes Univer s thiazide 25 8-16 ity of mg tablet 00:00: [place] [facility] Branch hydroCHLORO 2020-0 Yes Univer s thiazide 25 8-16 ity of mg tablet 00:00: [address] Vital Signs Vital Name Observation Time Observation Value Comments Source Systolic blood 2021-04-21 18:57:00 128 mm[Hg] Univer sity of pressure [facility] Diastolic blood 2021-04-21 18:57:00 87 mm[Hg] Unive rsity of [facility] Heart rate 2021-04-21 18:57:00 76 /min [facility] Body temperature 2021-04-21 18:57:00 36.94 [facility] Respiratory rate 2021-04-21 18:57:00 19 /min [facility] Body height 2021-04-21 18:57:00 162.6 cm [facility] Body weight 2021-04-21 18:57:00 103.93 kg [facility] BMI 2021-04-21 18:57:00 39.33 kg/m2 [facility] Oxygen saturation in 2021-04-21 18:57:00 98 /min [facility] blood by [facility] Pulse oximetry Branch Procedures This patient has no known procedures. Encounters Start End Encounter Admission Attending Care Care Encounter Source Date/Time Date/Time Type Type Clinicians Facility Department ID 2021-07-26 2021-07-26 Outpatient R TAMMY PAULINO [facility] [id number] 150Q-[id number] Univers 13:00:00 13:00:00 [id number] ity [facility] 2021-06-24 2021-06-24 Refill Tammy Paulino [facility] [id number] Univers 00:00:00 00:00:00 MAREN [id number] it y of WOMEN'S [id number] [facility] [id number] [address] 2021-06-09 2021-06-09 Outpatient R TAMMY PAULINO [facility] 114 150Q-20 Univers 10:30:00 10:30:00 [id number] ity of [facility] 2021-06-03 2021-06-03 Outpatient R TAMMY PAULINO [facility] [id number] Univers 10:46:15 23:59:00 ity of [facility] 2021-06-03 2021-06-03 [facility] Tammy Paulino [facility] [id number] Univers 10:46:15 23:59:00 Encounter BLAISE [id number] ity of HEXT [id number] [facility] [id number] [address] 2021-06-03 2021-06-03 Outpatient R TAMMY PAULINO [facility] [id number] 150Q-[id number] Univers 00:00:00 00:00:00 [id number] ity of [facility] 2021-05-16 2021-05-16 Refill Tammy Paulino [facility] [id number] Univers 00:00:00 00:00:00 MAREN [id number] it y of WOMEN'S [id number] [facility] [id number] [address] 2021-04-21 2021-04-21 Office Tammy Pauilno [facility] [id number] Univers 13:40:40 14:55:45 Visit MAREN [id number] it y of WOMEN'S [id number] [facility] [id number] [address] Results This patient has no known results.
[2021-07-08] MEDS ORDERED: MORPHINE 2 MG/ML SYR ONE ×2 (11:05→12:54)
[2021-07-08 11:06] LABS: Absolute Lymphocytes (CBC) 1.8 K/uL (0.7-4.9); Hematocrit 49.3 % (36.0-45.0); Lymphocytes % 11.5 % (15.3-44.8); MPV 8.3 fL (7.6-11.3)
[2021-07-08] MEDS ORDERED: NA CHLORIDE 0.9% 1,000 ML ONE (11:06)
[2021-07-08] MEDS ORDERED: ONDANSETRON 4 MG/2 ML VIAL ONE ×2 (11:06→15:48)
[2021-07-08 11:19] LABS: Urine Blood 2+ (Negative); Urine Glucose Negative (Negative); Urine Protein Negative (Negative)
[2021-07-08 12:00] LABS: ALT/SGPT 40 U/L (12-78); AST/SGOT 17 U/L (15-37); Albumin 3.1 g/dL (3.4-5.0); Alkaline Phosphatase 143 U/L (45-117); BUN Blood Urea Nitrogen 9 mg/dL (7-18); Bicarbonate 27 mmol/L (21-32); Bilirubin Direct < 0.1 mg/dL (0-0.2); Bilirubin Total 0.4 mg/dL (0.2-1.0); Glucose Level 108 mg/dL (74-106); Lipase 108 U/L (73-393); Potassium 3.8 mmol/L (3.5-5.1); Protein, Total 7.9 g/dL (6.4-8.2); Sodium Level 135 mmol/L (136-145)
--- NOTE | 2021-07-08 13:30 | ER ---
Nurse's Notes [facility] Name: Phyllis Escalera Age: 51 yrs Sex: Female : 1970 Arrival Date: 07/08/2021 Time: 10:30 Bed 17 Private MD: Diagnosis: Anorectal abscess;Elevated white blood cell count Presentation: 07/08 10:35 Chief complaint: Patient states: States she strain had to have BM last week. Pain, ll1 swelling, tenderness to anal area since. No fever. Coronavirus screen: Vaccine status: Patient reports receiving the 2nd dose of the covid vaccine. Client denies travel out of the [place] in the last 14 days. At this time, the client does not indicate any symptoms associated with coronavirus-19. Ebola Screen: Patient denies travel to an Ebola-affected area in the 21 days before illness onset. Initial Sepsis Screen: Does the patient meet any 2 criteria? No. Patient's initial sepsis screen is negative. Does the patient have a suspected source of infection? Yes: Other: rectal pain/swelling. Risk Assessment: Do you want to hurt yourself or someone else? Patient reports no desire to harm self or others. Onset of symptoms was July 01, 2021. 10:35 Method Of Arrival: Ambulatory ll1 10:35 Acuity: SILVERIO 3 ll1 Historical: - Allergies: 10:37 CALCIUM CHANNEL BLOCKING AGENTS-PHENYLALKYLAMINES; ll1 - PMHx: 10:37 Hypertension; gastritis; GERD; ll1 - PSHx: 10:37 Cholecystectomy; tubes tied; ll1 - Immunization history:: Client reports receiving the 2nd dose of the Covid vaccine. - Social history:: Smoking status: Patient reports the use of cigarette tobacco products, smokes one-half pack cigarettes per day. - Family history:: not pertinent. Screenin:50 Abuse screen: Denies threats or abuse. Denies injuries from another. Nutritional ww screening: No deficits noted. Tuberculosis screening: No symptoms or risk factors identified. Fall Risk None identified. Assessment: 10:50 General: Appears uncomfortable, Behavior is cooperative, appropriate for age. Pain: ww Complains of pain in gluteal cleft. Neuro: Level of Consciousness is awake, alert, obeys commands, Oriented to person, place, time, situation, Gait is steady, Speech is normal. Cardiovascular: Capillary refill < 3 seconds Patient's skin is warm and dry. Respiratory: Airway is patent Respiratory effort is even, unlabored, Respiratory pattern is regular, symmetrical. GI: Bowel sounds present X 4 quads. Abd is soft and non tender Reports rectal pain around the anus and the right buttock. : No signs and/or symptoms were reported regarding the genitourinary system. EENT: No deficits noted. No signs and/or symptoms were reported regarding the EENT system. Derm: Skin is healthy with good turgor, Skin is pink, warm \T\ dry. 11:41 Reassessment: No changes from previously documented assessment. Patient and/or family ww updated on plan of care and expected duration. Pain level reassessed. Patient is alert, oriented x 3, equal unlabored respirations, skin warm/dry/pink. 12:30 Reassessment: No changes from previously documented assessment. Patient and/or family ww updated on plan of care and expected duration. Pain level reassessed. Patient is alert, oriented x 3, equal unlabored respirations, skin warm/dry/pink. 14:00 Reassessment: No changes from previously documented assessment. Patient and/or family ww updated on plan of care and expected duration. Pain level reassessed. Patient is alert, oriented x 3, equal unlabored respirations, skin warm/dry/pink. 15:38 Reassessment: No changes from previously documented assessment. Patient and/or family ww updated on plan of care and expected duration. Pain level reassessed. Patient is alert, oriented x 3, equal unlabored respirations, skin warm/dry/pink. Patient states symptoms have not improved. Report given to surgery nurse, patient being transported to surgery. . Vital Signs: 10:35 Resp 17; Temp 97.7; Weight 113.4 kg; Height 5 ft. 6 in. (167.64 cm); Pain 10/10; ll1 10:44 BP 126 / 80; Pulse 98; Resp 20; Temp 98.7; Pulse Ox 100% ; Weight 113.4 kg; Height 5 mb7 ft. 4 in. (162.56 cm); 11:45 BP 127 / 73; Pulse 82; Resp 18; Pulse Ox 100% on R/A; ww 13:15 BP 106 / 62; Pulse 90; Resp 18; Pulse Ox 98% ; ww 14:00 BP 119 / 66; Pulse 88; Resp 18; Pulse Ox 100% on R/A; ww 10:44 Body Mass Index 42.91 (113.40 kg, 162.56 cm) 7 ED Course: 10:30 Patient arrived in ED. am2 10:35 Arm band placed on Patient placed in an exam room, on a stretcher. ll1 10:37 Luis Manuel Dash MD is Attending Physician. griselda 10:37 Triage completed. ll1 10:38 Mcihelle Hobson RN is Primary Nurse. ww 10:50 Patient has correct armband on for positive identification. Placed in gown. Bed in low ww position. Call light in reach. Side rails up X2. Adult w/ patient. Pulse ox on. NIBP on. Warm blanket given. 10:50 Initial lab(s) drawn, by me, sent to lab. Inserted saline lock: 20 gauge in left ww antecubital area, using aseptic technique. Blood collected. 13:15 CT Abd/Pelvis - PO and IV Contrast In Process Unspecified. EDKY 13:29 Dick Kilpatrick MD is Hospitalizing Provider. griselda 15:40 No provider procedures requiring assistance completed. Patient transferred, IV remains ww in place. Administered Medications: 11:08 Drug: NS 0.9% 1000 ml Route: IV; Rate: 1 bolus; Site: left antecubital; ww 11:09 Drug: Zofran (Ondansetron) 4 mg Route: IVP; Site: left antecubital; ww 11:13 Drug: morphine 2 mg Route: IVP; Site: left antecubital; ww 12:56 Drug: morphine 2 mg Route: IVP; Site: left antecubital; ww 13:24 CANCELLED (Duplicate Order): LevOfloxacin 750 mg PO once griselda 13:49 Drug: Flagyl (metroNIDAZOLE) 500 mg Volume: 100 ml; Route: IVPB; Rate: 200 ml/hr; ww Infused Over: 30 mins; Site: left antecubital; Outcome: 13:29 Decision to Hospitalize by Provider. griselda 15:40 Admitted to OR accompanied by nurse, via stretcher, with chart. ww 15:40 Condition: stable 15:40 Instructed on the need for admit. 15:41 Patient left the ED. ww Signatures: Dispatcher [employer] EDKY Luis Manuel Dash MD MD cha Moreno, Amanda am2 Holger Meyer, RN RN ll1 Sylvia Simental mb7 Michelle Hobson, RN RN ww
--- NOTE | 2021-07-08 13:30 | EDPHYS ---
Physician Documentation [facility] Name: Phyllis Escalera Age: 51 yrs Sex: Female : 1970 Arrival Date: 07/08/2021 Time: 10:30 Bed 17 Private MD: OSEI Physician Luis Manuel Dash HPI: 07/08 13:25 This 51 yrs old Female presents to ER via Ambulatory with complaints of griselda Rectal Pain. 13:25 The patient presents to the emergency department with pain in the rectal area. Onset: griselda The symptoms/episode began/occurred 7 day(s) ago. Context: the patient has no known special context relating to the rectal area complaint(s). Modifying factors: The symptoms are alleviated by remaining still, The symptoms are aggravated by bowel movement, movement, sitting position. Associate signs and symptoms: The patient has no apparent associated signs or symptoms. The patient has not experienced similar symptoms in the past. Historical: - Allergies: 10:37 CALCIUM CHANNEL BLOCKING AGENTS-PHENYLALKYLAMINES; ll1 - PMHx: 10:37 Hypertension; gastritis; GERD; ll1 - PSHx: 10:37 Cholecystectomy; tubes tied; ll1 - Immunization history:: Client reports receiving the 2nd dose of the Covid vaccine. - Social history:: Smoking status: Patient reports the use of cigarette tobacco products, smokes one-half pack cigarettes per day. - Family history:: not pertinent. ROS: 13:25 Constitutional: Negative for fever, chills, and weight loss, Eyes: Negative for injury, griselda pain, redness, and discharge, ENT: Negative for injury, pain, and discharge, Neck: Negative for injury, pain, and swelling, Cardiovascular: Negative for chest pain, palpitations, and edema, Respiratory: Negative for shortness of breath, cough, wheezing, and pleuritic chest pain, Back: Negative for injury and pain, : Negative for injury, bleeding, discharge, and swelling, MS/Extremity: Negative for injury and deformity, Skin: Negative for injury, rash, and discoloration, Neuro: Negative for headache, weakness, numbness, tingling, and seizure, Psych: Negative for depression, anxiety, suicide ideation, homicidal ideation, and hallucinations, Allergy/Immunology: Negative for hives, rash, and allergies, Endocrine: Negative for neck swelling, polydipsia, polyuria, polyphagia, and marked weight changes, Hematologic/Lymphatic: Negative for swollen nodes, abnormal bleeding, and unusual bruising. 13:25 Abdomen/GI: Positive for rectal pain. Exam: 13:27 Constitutional: This is a well developed, well nourished patient who is awake, alert, griselda and in no acute distress. Head/Face: Normocephalic, atraumatic. Eyes: Pupils equal round and reactive to light, extra-ocular motions intact. Lids and lashes normal. Conjunctiva and sclera are non-icteric and not injected. Cornea within normal limits. Periorbital areas with no swelling, redness, or edema. ENT: Nares patent. No nasal discharge, no septal abnormalities noted. Tympanic membranes are normal and external auditory canals are clear. Oropharynx with no redness, swelling, or masses, exudates, or evidence of obstruction, uvula midline. Mucous membranes moist. Neck: Trachea midline, no thyromegaly or masses palpated, and no cervical lymphadenopathy. Supple, full range of motion without nuchal rigidity, or vertebral point tenderness. No Meningismus. Chest/axilla: Normal chest wall appearance and motion. Nontender with no deformity. No lesions are appreciated. Cardiovascular: Regular rate and rhythm with a normal S1 and S2. No gallops, murmurs, or rubs. Normal PMI, no JVD. No pulse deficits. Respiratory: Lungs have equal breath sounds bilaterally, clear to auscultation and percussion. No rales, rhonchi or wheezes noted. No increased work of breathing, no retractions or nasal flaring. Back: No spinal tenderness. No costovertebral tenderness. Full range of motion. Female : Normal external genitalia. Skin: Warm, dry with normal turgor. Normal color with no rashes, no lesions, and no evidence of cellulitis. MS/ Extremity: Pulses equal, no cyanosis. Neurovascular intact. Full, normal range of motion. Neuro: Awake and alert, GCS 15, oriented to person, place, time, and situation. Cranial nerves II-XII grossly intact. Motor strength 5/5 in all extremities. Sensory grossly intact. Cerebellar exam normal. Normal gait. Psych: Awake, alert, with orientation to person, place and time. Behavior, mood, and affect are within normal limits. 13:27 Abdomen/GI: Inspection: abdomen appears normal, Bowel sounds: normal, Palpation: moderate abdominal tenderness, in the , Rectal exam: rectal tone normal, Stool: normal, mass, that is moderate-sized, swelling, that is moderate, tenderness, that is mild, the exam is chaperoned by a family member, Liver: no appreciated palpable abnormalities, Hernia: not appreciated. Vital Signs: 10:35 Resp 17; Temp 97.7; Weight 113.4 kg; Height 5 ft. 6 in. (167.64 cm); Pain 10/10; ll1 10:44 BP 126 / 80; Pulse 98; Resp 20; Temp 98.7; Pulse Ox 100% ; Weight 113.4 kg; Height 5 mb7 ft. 4 in. (162.56 cm); 11:45 BP 127 / 73; Pulse 82; Resp 18; Pulse Ox 100% on R/A; ww 13:15 BP 106 / 62; Pulse 90; Resp 18; Pulse Ox 98% ; ww 14:00 BP 119 / 66; Pulse 88; Resp 18; Pulse Ox 100% on R/A; ww 10:44 Body Mass Index 42.91 (113.40 kg, 162.56 cm) 7 MDM: 10:37 Patient medically screened. [facility] 07/08 10:38 Order name: Basic Metabolic Panel; Complete Time: 12:37 [facility] 07/08 10:38 Order name: CBC with Diff; Complete Time: 12:37 [facility] 07/08 10:38 Order name: Hepatic Function; Complete Time: 12:37 [facility] 07/08 10:38 Order name: Lipase; Complete Time: 12:37 [facility] 07/08 10:38 Order name: Urine Culture [facility] 07/08 11:17 Order name: Urine Dipstick-Ancillary; Complete Time: 12:37 [facility] 07/08 10:38 Order name: CT Abd/Pelvis - PO and IV Contrast [facility] 07/08 11:20 Order name: Urine --Ancillary (enter results) 07/08 13:41 Order name: SARS-COV-2 RT PCR (Document "Date of Onset" if Symptomatic) 07/08 10:38 Order name: IV Saline Lock; Complete Time: 11:01 [facility] 07/08 10:38 Order name: Labs collected and sent; Complete Time: 11: [facility] 07/08 10:38 Order name: Urine Dipstick-Ancillary (obtain specimen); Complete Time: 11: griselda 07/08 10:38 Order name: Urine Test (obtain specimen); Complete Time: : griselda Administered Medications: 11:08 Drug: NS 0.9% 1000 ml Route: IV; Rate: 1 bolus; Site: left antecubital; ww 11:09 Drug: Zofran (Ondansetron) 4 mg Route: IVP; Site: left antecubital; ww 11:13 Drug: morphine 2 mg Route: IVP; Site: left antecubital; ww 12:56 Drug: morphine 2 mg Route: IVP; Site: left antecubital; ww 13:24 CANCELLED (Duplicate Order): LevOfloxacin 750 mg PO once griselda 13:49 Drug: Flagyl (metroNIDAZOLE) 500 mg Volume: 100 ml; Route: IVPB; Rate: 200 ml/hr; ww Infused Over: 30 mins; Site: left antecubital; Disposition Summary: 07/08/21 13:29 Hospitalization Ordered Hospitalization Status: Inpatient Admission griselda Provider: Dick Kilpatrick cha Location: Telemetry/[facility] (Inpatient) griselda Condition: Stable griselda Problem: new griselda Symptoms: have improved griselda Bed/Room Type: Standard [facility] Room Assignment: griselda Diagnosis - Anorectal abscess griselda - Elevated white blood cell count griselda Forms: - Medication Reconciliation Form griselda - SBAR form griselda Signatures: Dispatcher [employer] Luis Manuel Goddard MD MD cha Lewis, Lynsay, RN RN ll1 Michelle Hobosn RN RN ww Corrections: (The following items were deleted from the chart) 13:24 12:39 LevOfloxacin 750 mg PO once ordered. griselda griselda
[2021-07-08] MEDS ORDERED: Levofloxacin 750mg IV 750 MG/150 ML BAG IV ONE (13:43)
[2021-07-08] MEDS ORDERED: METRONIDAZOLE 500mg IVPB 500 MG/100 ML BAG IV ONE (13:43)
--- NOTE | 2021-07-08 13:57 | RAD REPORT ---
EXAM DESCRIPTION: CTAbdomen Pelvis W Contrast - 07/08/2021 1:15 pm CLINICAL HISTORY: ABD PAIN COMPARISON: Abdomen Pelvis W Contrast dated 12/28/2020; Abdomen Pelvis W Contrast dated 12/14/2016 ; Abdomen Pelvis W Contrast dated 05/19/2016; CT ABD PELVIS W CONTRAST dated 09/24/2014bdomen Pelvi s W Contrast dated 12/28/2020; Abdomen Pelvis W Contrast dated 12/14/2016; Abdomen Pelvis W Contras t dated 05/19/2016; CT ABD PELVIS W CONTRAST dated 09/24/2014 TECHNIQUE: CT of the abdomen and pelvis was performed. All CT scans are performed using dose optimization technique as appropriate and may include automated exposure control or mA/KV adjustment according to patient size. FINDINGS: Lower chest: Mild circumferential thickening of the distal esophagus which may reflect gas troesophageal reflux disease. Liver: Hepatic steatosis. Biliary: Cholecystectomy. Stomach: No significant focal abnormality. Duodenum: No significant focal abnormality. Pancreas: No significant abnormality. Spleen: No significant abnormality. Adrenal: No suspicious lesions. Kidney/ureter: No hydronephrosis. No renal calculi. Mild right lower pole renal scarring. Retroperitoneum: No retroperitoneal adenopathy. Vascular: No aneurysm. Bowel: No significant focal abnormality. Peritoneum: No ascites or free air. Bladder: Grossly unremarkable. Reproductive: No adnexal masses. Bones: No acute fracture. Other: Perianal abscess measuring 5.6 x 3.2 cm this is located at approximately the 4 o'clock to 8 o' clock position. This abuts the internal anal sphincter. IMPRESSION: Nearly 6 cm perianal abscess. Recommend surgical consultation.
[2021-07-08] MEDS ORDERED: ONDANSETRON 4 MG/2 ML VIAL IV PRN ×2 (14:48→17:09)
[2021-07-08] MEDS: D5 0.45 NS 1,000 ML IV SCH ×2 (14:48→21:40)
[2021-07-08] MEDS ORDERED: MORPHINE 4 MG/ML SYR IV PRN (14:48)
[2021-07-08] MEDS ORDERED: ACETAMINOPHEN 325 MG TABLET PO PRN (14:50)
[2021-07-08] MEDS ORDERED: Ringers Lactate 1,000 ML IV ONE (15:41)
[2021-07-08] MEDS ORDERED: propofoL 200 MG/20 ML VIAL IV ONE (15:46)
[2021-07-08] MEDS ORDERED: LIDOCAINE 2% MPF 5 ML VIAL ONE (15:47)
[2021-07-08] MEDS ORDERED: KETOROLAC 30 MG/ML INJ ONE (15:48)
[2021-07-08] MEDS ORDERED: FENTANYL CITR 100 MCG/2 ML ONE (15:48)
[2021-07-08] MEDS ORDERED: dexAMETHasone 10 MG/ML VIAL ONE (15:49)
[2021-07-08] MEDS ORDERED: BUPIVACAINE 0.5% PF 10 ML VIAL ONE (16:09)
--- NOTE | 2021-07-08 16:10 | P.HP ---
Date of Service: 07/08/21 PC: This 51-year-old female presented to the emergency room with severe perirectal pain for diagnosis and treatment. HPC: Patient has been having perirectal pressure for the last week. She has noticed that has become more more painful over the last few days. Finally the pain intensified and is also getting longer distended today. Describes it as being down in her tailbone, very severe and unrelenting. PSHx: Negative PMHx: Hypertension Social Hx: Allergic to calcium channel blockers Sys R: No cough, wheeze, shortness of breath. No chest pain or palpitations. Denies any urinary complaints O/E: Awake alert vital signs are stable HEENT: Within normal limits Chest: Chest movement equal bilaterally Abd: Intact Closplint: [] Data: CT scan shows large midline perirectal abscess, 15,000 white count Impression: Perirectal abscess Plan: To the operating room for incision, drainage, a perirectal abscess. The risks of this procedure have been discussed. The possibility of bleeding, infection, injury to surrounding structures and sphincters have been described. The possible need for further surgeries and procedures was discussed. She understands and wants us to proceed.
--- NOTE | 2021-07-08 17:51 | P.OP ---
Preoperative diagnosis: Perirectal abscess Postoperative diagnosis: The same Primary procedure: Incision, drainage, sharp debridement of perirectal abscess Anesthesia: General Estimated blood loss: Less than 10 cc Specimen: Pus was sent for cultures both aerobic and anaerobic Operative Technique: Patient brought the operating room placed supine on the table. After the induction of adequate general anesthesia, she was brought into the lithotomy position. The area was prepped with a DuraPrep solution. A gentle rectal exam was done. We could feel just external to the sphincters in the subcutaneous tissue findings consistent with seen on the CT scan of this abscess in this area we were able to take a 10 cc syringe and aspirated about 10 cc of half through this area having numbness and localize the abscess a skin incision was made with 11 blade this was brought down through the skin and subcutaneous tissue a hemostat was placed into this space in the. Anal area spread to drain out completely this abscess the suture was now placed into the wound and brought out more laterally to keep it open and draining during the postoperative period at the end of the procedure the patient was in a stable condition was sent to the recovery room needle sponge instrument count was correct #2 nylon was left in place and will be removed next week. Complications: None Drain(s): Other (#2 nylon) Transferred to: Recovery Room Condition: Good
[2021-07-08] MEDS: Ringers Lactate 1,000 ML IV SCH (18:08)
[2021-07-08] MEDS: METRONIDAZOLE 500mg IVPB 500 MG/100 ML BAG IV SCH ×2 (18:08→23:41)
[2021-07-08 18:29] VITALS: BMI 40.3
[2021-07-09] MEDS: Ringers Lactate 1,000 ML IV SCH ×2 (03:18→12:37)
[2021-07-09] MEDS: METRONIDAZOLE 500mg IVPB 500 MG/100 ML BAG IV SCH ×2 (05:01→12:37)
[2021-07-09] MEDS: D5 0.45 NS 1,000 ML IV SCH (06:48)
[2021-07-09] MEDS: HYDROCODONE/APAP 7.5/325 MG TAB PO PRN ×2 (08:28→14:39)
[2021-07-09 12:37] VITALS: BP 127/79; TEMP 98
[2021-07-09 13:30] VITALS: O2SAT 94
[2021-07-09] MEDS ORDERED: Levofloxacin 750mg IV 750 MG/150 ML BAG IV SCH (14:00)
== END 2021-07-09 15:00 | disposition home or self-care (01) | DRG 346 ==
LOC: ER 10:26 → ERHOLD 13:31 → 2ND 17:07
PROVIDERS: ADMIT Surgery; ATTEND Surgery
PROC: 0D9P0ZZ Drainage of Rectum, Open Approach (ICD-10-PCS; principal; 2021-07-08 14:00)
DX: K61.1 Rectal abscess (principal); I10 Essential (primary) hypertension; K21.9 Gastro-esophageal reflux disease without esophagitis; D72.829 Elevated white blood cell count, unspecified; F17.210 Nicotine dependence, cigarettes, uncomplicated; Z90.49 Acquired absence of other specified parts of digestive tract; Z88.8 Allergy status to other drugs, medicaments and biological substances; Z20.822 Contact with and (suspected) exposure to COVID-19
CPT/HCPCS: 36415; 74177; 80048; 80076; 81003; 81025; 83690; 85025; 87070; 87075; 87077; 87186; 87205; 94010; 96374; 96375; 99285; J1100; J2270; J2405; J2704; J3010; J7030; J7120; Q9967; U0003